=== PATIENT | female | born 1945 | race Caucasian/White ===

== ENCOUNTER 2016-11-11 16:42 | Inpatient (IN) | payer MEDICARE, MEDICAID ==
--- NOTE | 2016-11-11 17:07 | ER Document Report ---
ED General - General Chief Complaint: General Weakness Stated Complaint: WEAKNESS Time seen by provider: 17:00 Notes: This is a 71-year-old female with history of hypertension, diabetes, CVA with residual right sided weakness who presents complaining of generalized weakness. She states that she's been having problems for several months of legs giving out and also episodic bowel incontinence. She states that she fell today because she was just weak. She states her legs get weak and she just eases herself downto the ground. She has difficulty getting herself back up. She was on floor in bathroom for about 20 minutes today. There's been no syncope or loss of consciousness. She has not struck her head. She denies any headache. She does complain of fever and some flulike symptoms. She states multiple family members at been ill with similar symptoms. She complains of cough productive of scanty clear sputum. She's had a dry scratchy throat. She's had nausea with vomiting and some loose stools. She denies any abdominal pain. She is on aspirin and Plavix for storke prevention. Past Medical History - Social History Smoking Status: Current Every Day Smoker Frequency of alcohol use: None Drug Abuse: None Lives with: Family Family History: Reviewed & Not Pertinent Review of Systems - Review of Systems Constitutional: Chills, Fever, Malaise, Weakness EENT: Throat pain Cardiovascular: denies: Chest pain Respiratory: Cough, Short of breath Gastrointestinal: Diarrhea, Nausea, Vomiting. denies: Abdominal pain Genitourinary: denies: Burning, Dysuria, Flank pain Musculoskeletal: Leg swelling Neurological/Psychological: denies: Numbness, Tingling Physical Exam - Vital signs Vitals: Temp Pulse Resp BP Pulse Ox 99.9 F 79 20 176/79 H 96 11/11/16 16:51 11/11/16 16:51 11/11/16 16:51 11/11/16 16:51 11/11/16 16:51 - General General appearance: Alert In distress: None - Elderly, debilitated appearing female in no acute respiratory distress - HEENT Head: Normocephalic Pupils: PERRL Mucous membranes: Normal Pharynx: Normal Neck: Normal - Respiratory Respiratory status: No respiratory distress Breath sounds: Normal - Cardiovascular Rhythm: Regular - Abdominal Inspection: Obese Bowel sounds: Normal Tenderness: Nontender - Back Back: Normal - Extremities General upper extremity: Normal inspection General lower extremity: Edema - Neurological Orientation: AAOx4 - Psychological Associated symptoms: Normal affect - Skin Skin Temperature: Warm Skin Moisture: Dry Skin Color: Normal Course - Re-evaluation Re-evalutation: 11/11/16 18:40 pt oxygen saturation drops to 88% when nasal cannula removed. Pt placed back on 2L O2 - Vital Signs Vital signs: Temp Pulse Resp BP Pulse Ox 99.9 F 79 20 176/79 H 96 11/11/16 16:51 11/11/16 16:51 11/11/16 16:51 11/11/16 16:51 11/11/16 16:51 - Laboratory Result Diagrams: 11/11/16 17:10 11/11/16 17:10 Laboratory results interpreted by me: 11/11/16 11/11/16 11/11/16 17:10 17:10 17:50 Seg Neuts % (Manual) 90 H Band Neutrophils % 2 L Lymphocytes % (Manual) 3 L Abs Neuts (Manual) 8.3 H Sodium 129.9 L Potassium 3.2 L Chloride 85 L Glucose 182 H AST 47 H Urine Protein 30 H Urine Blood MODERATE H Ur Leukocyte Esterase TRACE H - Diagnostic Test Radiology reviewed: Image reviewed, Reports reviewed - left lower lobe pneumonia Discharge - Discharge Clinical Impression: Hypokalemia, Hyponatremia Pneumonia Qualifiers: Pneumonia type: due to unspecified organism Laterality: left Lung location: lower lobe of lung Qualified Code(s): J18.1 - Lobar pneumonia, unspecified organism Condition: Good Disposition: ADMITTED INPATIENT [facility] Admitted: Telemetry
[2016-11-11 17:29] LABS: HEMATOCRIT 37.9 % (36.0-47.0); HEMOGLOBIN 12.8 g/dL (12.0-15.5); HGB HCT DIFFERENCE 0.5; MEAN CORPUSCULAR HEMOGLOBIN 28.9 pg (27.0-33.4); MEAN CORPUSCULAR HGB CONC 33.7 g/dL (32.0-36.0); MEAN CORPUSCULAR VOLUME 86 fl (80-97); RED BLOOD COUNT 4.43 10^6/uL (3.72-5.28)
[2016-11-11 17:39] LABS: PROTHROMBIN TIME 12.6 SEC (11.4-15.4)
[2016-11-11 17:40] LABS: PARTIAL THROMBOPLASTIN TIME 32.8 SEC (23.5-35.8)
[2016-11-11 17:48] LABS: ALANINE AMINOTRANSFERASE 30 U/L (9-52); ALBUMIN 3.8 g/dL (3.5-5.0); ALKALINE PHOSPHATASE 54 U/L (38-126); ANION GAP 15 (5-19); ASPARTATE AMINO TRANSFERASE 47 U/L (14-36); BILIRUBIN,TOTAL 0.4 mg/dL (0.2-1.3); BLOOD UREA NITROGEN 14 mg/dL (7-20); CALCIUM 9.1 mg/dL (8.4-10.2); CARBON DIOXIDE 30 mmol/L (22-30); CHLORIDE 85 mmol/L (98-107); CREATININE RESULT 0.86 mg/dL (0.52-1.25); GLUCOSE 182 mg/dL (75-110); POTASSIUM 3.2 mmol/L (3.6-5.0); SODIUM 129.9 mmol/L (137-145); TOTAL PROTEIN 6.3 g/dL (6.3-8.2)
[2016-11-11] MEDS ORDERED: NORMAL SALINE 1000 ML 1,000 ML IV ONE (17:57)
[2016-11-11 17:58] LABS: BAND NEUTROPHILS % (MANUAL) 2 % (3-5); BASOPHILS % (MANUAL) 0 % (0-2); EOSINOPHILS % (MANUAL) 0 % (0-6); LYMPHOCYTES % (MANUAL) 3 % (13-45); TOTAL CELLS COUNTED 100
[2016-11-11 17:59] LABS: TOXIC GRANULATION SLIGHT
[2016-11-11 18:00] LABS: BURR CELLS SLIGHT; OVALOCYTES SLIGHT; ROULEAUX SLIGHT
[2016-11-11] MEDS ORDERED: POTASSI CL 20 MEQ/50 ML RIDER 50 ML IV SCH (18:00)
[2016-11-11] MEDS ORDERED: ACETAMINOPHEN 325 MG TABLET PO ONE (18:13)
[2016-11-11] MEDS ORDERED: AZITHROMYCIN INJ 500 MG VIAL IV ONE (18:28)
[2016-11-11] MEDS ORDERED: CEFTRIAXONE 1 GM/D5W RTU 50 ML IV ONE (18:28)
[2016-11-11 18:35] LABS: APPEARANCE,URINE CLOUDY; BILIRUBIN,URINE NEGATIVE (NEGATIVE); GLUCOSE, URINE NEGATIVE (NEGATIVE); KETONES,URINE NEGATIVE (NEGATIVE); LEUKOCYTE ESTERASE,URINE TRACE (NEGATIVE); NITRITE,URINE NEGATIVE (NEGATIVE); PROTEIN,URINE 30 mg/dL (NEGATIVE); URINE SPECIFIC GRAVITY 1.015; UROBILINOGEN,URINE NEGATIVE mg/dL (<2.0)
[2016-11-11] MEDS ORDERED: LEVOFLOXACIN 750 MG/D5W RTU 750 MG/150 ML RTUPB IV ONE (20:00)
[2016-11-11 20:17] LABS: CREATINE KINASE MB 0.87 ng/mL (<4.55)
[2016-11-11 20:24] LABS: TROPONIN I 0.538 ng/mL
[2016-11-11] MEDS ORDERED: ATORVASTATIN CALCIUM 80 MG TABLET PO ONE (20:31)
[2016-11-11] MEDS ORDERED: ASPIRIN 325 MG TABLET PO ONE (20:31)
[2016-11-11] MEDS: IPRATROPIUM/ALBUTEROL 0.5-2.5 MG/3 ML AMPUL NEB SCH (20:32)
[2016-11-11] MEDS ORDERED: DEXTROSE 40% GEL 15 GM TUBE PO PRN ×2 (20:34)
[2016-11-11] MEDS ORDERED: DEXTROSE 50%-WATER 25 GM/50 ML DISP.SYRIN IV PRN ×2 (20:34)
[2016-11-11] MEDS ORDERED: GLUCAGON,HUMAN RECOMB 1 MG INJ IM PRN (20:34)
--- NOTE | 2016-11-11 20:54 | EKG REPORT ---
SEVERITY:- ABNORMAL ECG - SINUS TACHYCARDIA SINUS PAUSE/ARREST WITH ATRIAL ESCAPE ABNRM R PROG, CONSIDER ASMI OR LEAD PLACEMENT : Confirmed by: Brendon Burr MD 11-Nov-2016 20:53:45
--- NOTE | 2016-11-11 20:54 | EKG REPORT ---
SEVERITY:- ABNORMAL ECG - SINUS RHYTHM SUPRAVENTRICULAR BIGEMINY BORDERLINE LEFT AXIS DEVIATION : Confirmed by: Brendon Burr MD 11-Nov-2016 20:53:58
[2016-11-11] MEDS ORDERED: CLOPIDOGREL BISULFATE 75 MG TABLET PO ONE (21:00)
[2016-11-11] MEDS: MAGNESIUM SULFATE/D5W 100 ML IV SCH (21:30)
[2016-11-11] MEDS: HEPARIN SOD (PORCINE) 5,000 UNIT/ML 1 ML SYRINGE SUBCUT SCH (22:00)
[2016-11-11] MEDS: GUAIFENESIN 600 MG TABLET.SA PO SCH (22:00)
[2016-11-11] MEDS: AMLODIPINE BESYLATE 5 MG TABLET PO SCH (22:00)
[2016-11-12] MEDS: MAGNESIUM SULFATE/D5W 1 GM/100 ML RTUPB IV SCH ×2 (00:42→02:32)
[2016-11-12] MEDS ORDERED: POTASSI CL 20 MEQ/50 ML RIDER 20 MEQ/50 ML RTUPB IV SCH (00:45)
[2016-11-12] MEDS: IPRATROPIUM/ALBUTEROL 0.5-2.5 MG/3 ML AMPUL NEB SCH ×4 (01:54→20:58)
[2016-11-12] MEDS: MAGNESIUM SULFATE/D5W 100 ML IV SCH (02:33)
[2016-11-12 02:39] LABS: ABSOLUTE MONOCYTES (AUTO) 0.6 10^3/uL (0.1-1.4); ABSOLUTE NEUT (AUTO) 4.2 10^3/uL (1.7-8.2); BASOPHILS % (AUTO) 0.3 % (0-2); HEMATOCRIT 34.7 % (36.0-47.0); HEMOGLOBIN 12.3 g/dL (12.0-15.5); HGB HCT DIFFERENCE 2.2; LYMPHOCYTES % (AUTO) 16.4 % (13-45); MEAN CORPUSCULAR HEMOGLOBIN 29.3 pg (27.0-33.4); MEAN CORPUSCULAR HGB CONC 35.3 g/dL (32.0-36.0); MEAN CORPUSCULAR VOLUME 83 fl (80-97); MONOCYTES % (AUTO) 10.7 % (3-13); RED BLOOD COUNT 4.19 10^6/uL (3.72-5.28); RED CELL DISTRIBUTION WIDTH 12.9 % (11.5-14.0); SEGMENTED NEUTROPHILS % (AUTO) 72.6 % (42-78); WHITE BLOOD COUNT 5.8 10^3/uL (4.0-10.5)
[2016-11-12 03:02] LABS: ANION GAP 11 (5-19); BLOOD UREA NITROGEN 10 mg/dL (7-20); CALCIUM 8.7 mg/dL (8.4-10.2); CARBON DIOXIDE 32 mmol/L (22-30); CHLORIDE 89 mmol/L (98-107); CREATINE KINASE 1175 U/L (30-135); CREATININE RESULT 0.71 mg/dL (0.52-1.25); GLUCOSE 136 mg/dL (75-110); SODIUM 131.6 mmol/L (137-145)
[2016-11-12 03:12] LABS: CREATINE KINASE MB 2.27 ng/mL (<4.55)
[2016-11-12 03:16] LABS: TROPONIN I 0.419 ng/mL
[2016-11-12] MEDS: POTASSI CL 20 MEQ/50 ML RIDER 50 ML IV SCH ×2 (03:33→06:03)
[2016-11-12] MEDS ORDERED: ENALAPRILAT DIHYDRATE INJ/PF 1.25 MG/1 ML SDV IV ONE (04:45)
[2016-11-12] MEDS: HEPARIN SOD (PORCINE) 5,000 UNIT/ML 1 ML SYRINGE SUBCUT SCH ×3 (06:03→21:54)
[2016-11-12] MEDS ORDERED: POTASSIUM CHLORIDE 10 MEQ TABLET.SA PO ONE (06:03)
--- NOTE | 2016-11-12 06:11 | PDOC H&P ---
History of Present Illness Admission Date/PCP: 11/11/16 19:28 KP CARSON Patient complains of: Shortness of breath cough and fever History of Present Illness: THA VERNON is a 71 year old female with a past medical history of hypertension diabetes dyslipidemia and COPD who'd been her usual state of health until approximately 3 days ago noting a productive cough with yellow sputum developing fever prompting to seek evaluation emergency room where she's found to have an x-ray suggesting pneumonia and pulmonary vascular congestion she started on empiric antibiotics and referred to the hospitalist for admission. Patient denies recent change in medications or infectious contacts. No chest pain nausea vomiting diaphoresis. Past Medical History Cardiac Medical History: Reports: Hypertension Pulmonary Medical History: Reports: Chronic Obstructive Pulmonary Disease (COPD) Endocrine Medical History: Reports: Diabetes Mellitus Type 2 Psychiatric Medical History: Reports: Depression Past Surgical History Past Surgical History: Reports: Hysterectomy Social History Lives with: Family Smoking Status: Current Some Day Smoker Cigarettes Packs Per Day: 1 Frequency of Alcohol Use: None Hx Recreational Drug Use: No Drugs: None Hx Prescription Drug Abuse: No - Advance Directive Resuscitation Status: Full Code Family History Family History: CAD, COPD Parental Family History Reviewed: Yes Children Family History Reviewed: Yes Sibling(s) Family History Reviewed.: Yes Medication/Allergy Home Medications: Acetaminophen with Codeine [Tylenol #3 Tablet] 1 tab PO Q6HP PRN 11/11/16 Amlodipine Besylate [Amlodipine Besylate] 5 mg PO BID 11/11/16 Aspirin [Aspirin EC] 81 mg PO DAILY 11/11/16 Clopidogrel Bisulfate [Clopidogrel] 75 mg PO DAILY 11/11/16 Cyclobenzaprine HCl [Flexeril 10 mg Tablet] 10 mg PO TIDP PRN 11/11/16 Fluticasone/Salmeterol [Advair HFA 230-21 mcg Inhaler] 2 puff IH DAILY 11/11/16 Furosemide [Lasix 40 mg Tablet] 40 mg PO DAILY 11/11/16 Lisinopril/Hydrochlorothiazide [Lisinopril-Hctz 20-12.5 mg Tab] 1 tab PO Q12 Metoprolol Succinate [Toprol XL 100 mg Tablet] 100 mg PO DAILY 11/11/16 Nitroglycerin [Nitrostat] 0.3 mg SL PRN PRN 11/11/16 Omeprazole [Omeprazole] 20 mg PO DAILY 11/11/16 Oxaprozin [Daypro] 1,200 mg PO DAILY 11/11/16 Oxybutynin Chloride [Ditropan 5 mg Tablet] 5 mg PO Q12 11/11/16 Simvastatin [Simvastatin] 20 mg PO QHS 11/11/16 Sitagliptin Phos/Metformin HCl [Janumet 50-1,000 mg Tablet] 1 tab PO BID Tramadol HCl/Acetaminophen [Tramadol-Acetaminophn 37.5-325] 2 tab PO Q8 Allergies/Adverse Reactions: No Known Allergies Allergy (Verified 11/12/16 00:31) Review of Systems Constitutional: ABSENT: chills, fever(s), headache(s), weight gain, weight loss Eyes: ABSENT: visual disturbances Ears: ABSENT: hearing changes Cardiovascular: ABSENT: chest pain, dyspnea on exertion, edema, orthropnea, palpitations Respiratory: ABSENT: cough, hemoptysis Gastrointestinal: ABSENT: abdominal pain, constipation, diarrhea, hematemesis, hematochezia, nausea, vomiting Genitourinary: ABSENT: dysuria, hematuria Musculoskeletal: ABSENT: joint swelling Integumentary: ABSENT: rash, wounds Neurological: ABSENT: abnormal gait, abnormal speech, confusion, dizziness, focal weakness, syncope Psychiatric: ABSENT: anxiety, depression, homidical ideation, suicidal ideation Endocrine: ABSENT: cold intolerance, heat intolerance, polydipsia, polyuria Hematologic/Lymphatic: ABSENT: easy bleeding, easy bruising Physical Exam Vital Signs: Temp Pulse Resp BP Pulse Ox 98.2 F 77 14 182/65 H 96 11/12/16 03:20 11/12/16 03:20 11/12/16 03:20 11/12/16 03:20 11/12/16 03:20 Intake & Output 11/10/16 11/11/16 11/12/16 11:59 11:59 11:59 Weight 89.1 kg General appearance: PRESENT: cooperative, mild distress Head exam: PRESENT: atraumatic, normocephalic Eye exam: PRESENT: conjunctiva pink, EOMI, PERRLA. ABSENT: scleral icterus Ear exam: PRESENT: normal external ear exam Mouth exam: PRESENT: moist, tongue midline Neck exam: ABSENT: carotid bruit, JVD, lymphadenopathy, thyromegaly Respiratory exam: PRESENT: accessory muscle use, crackles, prolonged expiratory phas, rales, rhonchi, symmetrical, tachypnea Cardiovascular exam: PRESENT: irregular rhythm, +S1, +S2. ABSENT: diastolic murmur, gallop, rubs Pulses: PRESENT: normal dorsalis pedis pul Vascular exam: PRESENT: normal capillary refill GI/Abdominal exam: PRESENT: normal bowel sounds, soft. ABSENT: distended, guarding, mass, organolmegaly, rebound, tenderness Rectal exam: PRESENT: deferred Extremities exam: PRESENT: full ROM. ABSENT: calf tenderness, clubbing, pedal edema Neurological exam: PRESENT: alert, awake, oriented to person, oriented to place , oriented to time, oriented to situation, CN II-XII grossly intact. ABSENT: motor sensory deficit Psychiatric exam: PRESENT: appropriate affect, normal mood. ABSENT: homicidal ideation, suicidal ideation Skin exam: PRESENT: dry, intact, warm. ABSENT: cyanosis, rash Results Laboratory Results: 11/12/16 02:15 11/12/16 02:15 11/12/16 11/12/16 11/12/16 02:15 02:15 02:15 WBC 5.8 RBC 4.19 Hgb 12.3 Hct 34.7 L MCV 83 MCH 29.3 MCHC 35.3 RDW 12.9 Plt Count 154 Seg Neutrophils % 72.6 Lymphocytes % 16.4 Monocytes % 10.7 Eosinophils % 0.0 Basophils % 0.3 Absolute Neutrophils 4.2 Absolute Lymphocytes 1.0 Absolute Monocytes 0.6 Absolute Eosinophils 0.0 Absolute Basophils 0.0 Sodium 131.6 L Potassium 3.0 L* Chloride 89 L Carbon Dioxide 32 H Anion Gap 11 BUN 10 Creatinine 0.71 Est GFR ( Amer) > 60 Est GFR (Non-Af Amer) > 60 Glucose 136 H Calcium 8.7 Lipase 26.8 11/12/16 11/12/16 02:15 02:15 Creatine Kinase 1175 H CK-MB (CK-2) 2.27 Troponin I 0.419 Impressions: Chest X-Ray 11/11/16 16:50 IMPRESSION: 1. Possible left basilar pneumonia. 2. Mild vascular congestion Head CT 11/11/16 17:07 IMPRESSION: No significant abnormalities on brain CT. Assessment & Plan - Diagnosis (1) Pneumonia Qualifiers: Pneumonia type: due to unspecified organism Laterality: left Lung location: lower lobe of lung Qualified Code(s): J18.1 - Lobar pneumonia, unspecified organism Is this a current diagnosis for this admission?: YesPlan: Admission to monitored bed pneumonia care set empiric antibiotics albuterol Atrovent incentive spirometry following blood and sputum culture with follow-up CBC and chemistry (2) Hypomagnesemia Is this a current diagnosis for this admission?: YesPlan: Replace and recheck (3) Hypokalemia Is this a current diagnosis for this admission?: YesPlan: Replace and recheck chemistry (4) Hyponatremia Is this a current diagnosis for this admission?: YesPlan: Likely secondary to hydrochlorothiazide will hold IV fluid challenge and reevaluation - Time Time Spent: 50 to 70 Minutes
[2016-11-12] MEDS: LEVOFLOXACIN 750 MG/D5W RTU 750 MG/150 ML RTUPB IV SCH (09:00)
[2016-11-12] MEDS: ASPIRIN 81 MG TABLET, ENT COATED PO SCH (09:00)
[2016-11-12] MEDS: GUAIFENESIN 600 MG TABLET.SA PO SCH ×2 (09:01→21:53)
[2016-11-12] MEDS: CLOPIDOGREL BISULFATE 75 MG TABLET PO SCH (09:01)
[2016-11-12] MEDS: AMLODIPINE BESYLATE 5 MG TABLET PO SCH ×2 (09:01→21:53)
[2016-11-12] MEDS ORDERED: DILTIAZEM HCL 30 MG TABLET PO ONE (09:45)
[2016-11-12] MEDS ORDERED: METOPROLOL SUCCINATE 50 MG TAB.SR.24H PO SCH (10:00)
[2016-11-12 11:12] LABS: CREATINE KINASE MB 2.18 ng/mL (<4.55); TROPONIN I 0.301 ng/mL
--- NOTE | 2016-11-12 11:33 | PDOC PROGRESS REPORT ---
Subjective Progress Note for:: 11/12/16 Subjective:: Complains of a cough. Physical Exam Vital Signs: Temp Pulse Resp BP Pulse Ox 98.7 F 114 H 20 162/83 H 95 11/12/16 08:10 11/12/16 08:10 11/12/16 08:10 11/12/16 08:10 11/12/16 08:10 Intake & Output 11/11/16 11/12/16 11/13/16 06:59 06:59 06:59 Intake Total 1628 Balance 1628 Weight 89.1 kg General appearance: PRESENT: no acute distress Eye exam: PRESENT: conjunctiva pink. ABSENT: scleral icterus Mouth exam: PRESENT: moist, tongue midline Neck exam: ABSENT: JVD Respiratory exam: PRESENT: rhonchi - Bilateral rhonchi. Cardiovascular exam: PRESENT: RRR, systolic murmur - 2/6 systolic murmur.. ABSENT: diastolic murmur, rubs Extremities exam: ABSENT: calf tenderness, clubbing, pedal edema Neurological exam: PRESENT: alert, awake, oriented to person, oriented to place , oriented to time, oriented to situation, other - Mild slurring of speech. Psychiatric exam: PRESENT: appropriate affect Skin exam: PRESENT: dry, intact, warm. ABSENT: cyanosis, rash Results Laboratory Results: 11/12/16 02:15 11/12/16 02:15 11/12/16 11/12/16 11/12/16 02:15 02:15 02:15 WBC 5.8 RBC 4.19 Hgb 12.3 Hct 34.7 L MCV 83 MCH 29.3 MCHC 35.3 RDW 12.9 Plt Count 154 Seg Neutrophils % 72.6 Lymphocytes % 16.4 Monocytes % 10.7 Eosinophils % 0.0 Basophils % 0.3 Absolute Neutrophils 4.2 Absolute Lymphocytes 1.0 Absolute Monocytes 0.6 Absolute Eosinophils 0.0 Absolute Basophils 0.0 Sodium 131.6 L Potassium 3.0 L* Chloride 89 L Carbon Dioxide 32 H Anion Gap 11 BUN 10 Creatinine 0.71 Est GFR ( Amer) > 60 Est GFR (Non-Af Amer) > 60 Glucose 136 H Calcium 8.7 Magnesium Lipase 26.8 11/12/16 02:15 WBC RBC Hgb Hct MCV MCH MCHC RDW Plt Count Seg Neutrophils % Lymphocytes % Monocytes % Eosinophils % Basophils % Absolute Neutrophils Absolute Lymphocytes Absolute Monocytes Absolute Eosinophils Absolute Basophils Sodium Potassium Chloride Carbon Dioxide Anion Gap BUN Creatinine Est GFR ( Amer) Est GFR (Non-Af Amer) Glucose Calcium Magnesium 1.7 Lipase 11/12/16 11/12/16 11/12/16 02:15 02:15 10:20 Creatine Kinase 1175 H 1310 H CK-MB (CK-2) 2.27 Troponin I 0.419 11/12/16 10:20 Creatine Kinase CK-MB (CK-2) 2.18 Troponin I 0.301 Impressions: Chest X-Ray 11/11/16 16:50 IMPRESSION: 1. Possible left basilar pneumonia. 2. Mild vascular congestion Head CT 11/11/16 17:07 IMPRESSION: No significant abnormalities on brain CT. Assessment & Plan - Diagnosis (1) Pneumonia Qualifiers: Pneumonia type: due to unspecified organism Laterality: left Lung location: lower lobe of lung Qualified Code(s): J18.1 - Lobar pneumonia, unspecified organism Is this a current diagnosis for this admission?: YesPlan: Patient has a left basilar pneumonia. We'll continue with the Levaquin. (2) CVA (cerebral vascular accident) Is this a current diagnosis for this admission?: YesPlan: Patient had slurred speech reports she still having some difficulty with word finding. Head CT was normal but will check an MRI to see if she has had an acute CVA. We'll continue with aspirin. (3) Hypokalemia Is this a current diagnosis for this admission?: YesPlan: Patient has been given IV replacement. (4) Atrial fibrillation Is this a current diagnosis for this admission?: YesPlan: Patient will be started on by mouth diltiazem. Her heart rate has been running around 90 to 110. (5) Hypomagnesemia Is this a current diagnosis for this admission?: YesPlan: Resolved. (6) Hyponatremia Is this a current diagnosis for this admission?: YesPlan: Should improve with IV fluids. - Time Time Spent with patient: 25-34 minutes - Inpatient Certification Medical Necessity: Need for IV Antibiotics
[2016-11-12] MEDS ORDERED: DILTIAZEM HCL 30 MG TABLET PO SCH (12:00)
[2016-11-12] MEDS ORDERED: DILTIAZEM HCL/D5W 125 ML IV PRN (13:09)
[2016-11-12] MEDS: NORMAL SALINE 1000 ML 1,000 ML IV PRN (14:30)
[2016-11-12] MEDS: HYDRALAZINE HCL INJ/PF 20 MG/1 ML SDV IV PRN ×2 (16:00→21:54)
--- NOTE | 2016-11-12 16:38 | EKG REPORT ---
SEVERITY:- BORDERLINE ECG - SINUS RHYTHM WITH FREQ PACS. LEFT AXIS DEVIATION MINIMAL ST DEPRESSION, ANTEROLATERAL LEADS : Confirmed by: Brendon Burr MD 12-Nov-2016 16:37:26
[2016-11-13] MEDS: IPRATROPIUM/ALBUTEROL 0.5-2.5 MG/3 ML AMPUL NEB SCH ×4 (02:09→20:43)
[2016-11-13] MEDS ORDERED: DILTIAZEM HCL/D5W 125 MG/125 ML RTUINJ IV ONE (02:13)
[2016-11-13] MEDS: DILTIAZEM HCL/D5W 125 MG/125 ML RTUINJ IV PRN ×3 (02:30→21:46)
[2016-11-13] MEDS: NORMAL SALINE 1000 ML 1,000 ML IV PRN ×2 (05:31→21:47)
[2016-11-13] MEDS: HEPARIN SOD (PORCINE) 5,000 UNIT/ML 1 ML SYRINGE SUBCUT SCH ×3 (05:32→21:14)
[2016-11-13 05:46] LABS: ABSOLUTE MONOCYTES (AUTO) 0.5 10^3/uL (0.1-1.4); ABSOLUTE NEUT (AUTO) 3.1 10^3/uL (1.7-8.2); BASOPHILS % (AUTO) 0.3 % (0-2); HEMATOCRIT 35.9 % (36.0-47.0); HEMOGLOBIN 12.4 g/dL (12.0-15.5); HGB HCT DIFFERENCE 1.3; LYMPHOCYTES % (AUTO) 21.7 % (13-45); MEAN CORPUSCULAR HEMOGLOBIN 29.2 pg (27.0-33.4); MEAN CORPUSCULAR HGB CONC 34.6 g/dL (32.0-36.0); MEAN CORPUSCULAR VOLUME 84 fl (80-97); MONOCYTES % (AUTO) 11.3 % (3-13); RED BLOOD COUNT 4.26 10^6/uL (3.72-5.28); RED CELL DISTRIBUTION WIDTH 13.2 % (11.5-14.0); SEGMENTED NEUTROPHILS % (AUTO) 66.7 % (42-78); WHITE BLOOD COUNT 4.6 10^3/uL (4.0-10.5)
[2016-11-13 06:13] LABS: ANION GAP 9 (5-19); BLOOD UREA NITROGEN 5 mg/dL (7-20); CALCIUM 8.8 mg/dL (8.4-10.2); CARBON DIOXIDE 32 mmol/L (22-30); CHLORIDE 92 mmol/L (98-107); CREATININE RESULT 0.59 mg/dL (0.52-1.25); GLUCOSE 139 mg/dL (75-110); POTASSIUM 3.4 mmol/L (3.6-5.0); SODIUM 132.8 mmol/L (137-145)
[2016-11-13] MEDS: HYDRALAZINE HCL INJ/PF 20 MG/1 ML SDV IV PRN ×3 (06:15→21:13)
--- NOTE | 2016-11-13 10:02 | EKG REPORT ---
SEVERITY:- ABNORMAL ECG - SINUS TACHYCARDIA ATRIAL PREMATURE COMPLEX LEFT AXIS DEVIATION REPOL ABNRM SUGGESTS ISCHEMIA, DIFFUSE LEADS : Confirmed by: Brendon Burr MD 13-Nov-2016 10:01:26
--- NOTE | 2016-11-13 10:02 | EKG REPORT ---
SEVERITY:- BORDERLINE ECG - SINUS TACHYCARDIA WITH IRREGULAR RATE 94-130 LEFT AXIS DEVIATION : Confirmed by: Brendon Burr MD 13-Nov-2016 10:01:52
[2016-11-13] MEDS: LEVOFLOXACIN 750 MG/D5W RTU 750 MG/150 ML RTUPB IV SCH (10:29)
[2016-11-13] MEDS: CLOPIDOGREL BISULFATE 75 MG TABLET PO SCH (10:32)
[2016-11-13] MEDS: ASPIRIN 81 MG TABLET, ENT COATED PO SCH (10:32)
[2016-11-13] MEDS: AMLODIPINE BESYLATE 5 MG TABLET PO SCH ×2 (10:33→21:14)
[2016-11-13] MEDS: GUAIFENESIN 600 MG TABLET.SA PO SCH ×2 (10:37→21:14)
[2016-11-13] MEDS: INSULIN LISPRO 100 UNIT/ML 3 ML VIAL SUBCUT PRN ×3 (11:34→23:10)
--- NOTE | 2016-11-13 12:03 | PDOC PROGRESS REPORT ---
Subjective Progress Note for:: 11/13/16 Subjective:: Complains of shortness of breath. Physical Exam Vital Signs: Temp Pulse Resp BP Pulse Ox 98.2 F 117 H 18 162/46 H 95 11/13/16 05:41 11/13/16 11:50 11/13/16 08:59 11/13/16 11:50 11/13/16 08:59 Intake & Output 11/12/16 11/13/16 11/14/16 06:59 06:59 06:59 Intake Total 1628 3115 Output Total 1650 Balance 1628 1465 Weight 89.1 kg 89 kg General appearance: PRESENT: no acute distress Eye exam: PRESENT: conjunctiva pink. ABSENT: scleral icterus Mouth exam: PRESENT: moist, tongue midline Neck exam: ABSENT: JVD Respiratory exam: PRESENT: rhonchi - Coarse rhonchi bilaterally Cardiovascular exam: PRESENT: RRR, systolic murmur - 2/6 systolic murmur.. ABSENT: diastolic murmur, rubs GI/Abdominal exam: PRESENT: normal bowel sounds, soft. ABSENT: distended, guarding, mass, organolmegaly, rebound, tenderness Extremities exam: ABSENT: calf tenderness, clubbing, pedal edema Neurological exam: PRESENT: alert, awake, oriented to person, oriented to place , oriented to time, oriented to situation Psychiatric exam: PRESENT: appropriate affect Skin exam: PRESENT: dry, intact, warm. ABSENT: cyanosis, rash Results Laboratory Results: 11/13/16 05:24 11/13/16 05:24 11/13/16 11/13/16 05:24 05:24 WBC 4.6 RBC 4.26 Hgb 12.4 Hct 35.9 L MCV 84 MCH 29.2 MCHC 34.6 RDW 13.2 Plt Count 149 L Seg Neutrophils % 66.7 Lymphocytes % 21.7 Monocytes % 11.3 Eosinophils % 0.0 Basophils % 0.3 Absolute Neutrophils 3.1 Absolute Lymphocytes 1.0 Absolute Monocytes 0.5 Absolute Eosinophils 0.0 Absolute Basophils 0.0 Sodium 132.8 L Potassium 3.4 L Chloride 92 L Carbon Dioxide 32 H Anion Gap 9 BUN 5 L Creatinine 0.59 Est GFR ( Amer) > 60 Est GFR (Non-Af Amer) > 60 Glucose 139 H Calcium 8.8 11/12/16 11/12/16 11/12/16 02:15 02:15 10:20 Creatine Kinase 1175 H 1310 H CK-MB (CK-2) 2.27 Troponin I 0.419 11/12/16 10:20 Creatine Kinase CK-MB (CK-2) 2.18 Troponin I 0.301 Impressions: Chest X-Ray 11/11/16 16:50 IMPRESSION: 1. Possible left basilar pneumonia. 2. Mild vascular congestion Head CT 11/11/16 17:07 IMPRESSION: No significant abnormalities on brain CT. Head MRI 11/12/16 08:23 IMPRESSION: MINIMAL MICROVASCULAR ISCHEMIC CHANGE. OTHERWISE NORMAL STUDY. Assessment & Plan - Diagnosis (1) Pneumonia Qualifiers: Pneumonia type: due to unspecified organism Laterality: left Lung location: lower lobe of lung Qualified Code(s): J18.1 - Lobar pneumonia, unspecified organism Is this a current diagnosis for this admission?: YesPlan: Patient has a left basilar pneumonia. We'll continue with the Levaquin. (2) CVA (cerebral vascular accident) Is this a current diagnosis for this admission?: YesPlan: Patient had slurred speech reports she still having some difficulty with word finding. Head CT was normal and brain MRI showed no acute event. This may represent a TIA and not actually a CVA. (3) Hypokalemia Is this a current diagnosis for this admission?: YesPlan: We will give by mouth replacement. (4) Atrial fibrillation Is this a current diagnosis for this admission?: YesPlan: Patient was seen by cardiology who thinks this is not atrial fibrillation. Patient is on diltiazem. (5) Hypomagnesemia Is this a current diagnosis for this admission?: YesPlan: Resolved. (6) Hyponatremia Is this a current diagnosis for this admission?: YesPlan: Improving with IV fluids. - Time Time Spent with patient: 25-34 minutes - Inpatient Certification Medical Necessity: Need For IV Fluids, Need for IV Antibiotics
--- NOTE | 2016-11-13 14:48 | PROGRESS NOTE E ---
Progress Note NAME: THA VERNON : 1945 AGE: 71Y DATE: 11/13/2016 ROOM: 331 SUBJECTIVE: The patient states her shortness of breath is slightly improved. She still has orthopnea. There is no chest pain or discomfort. There is no palpitation. There is no nausea or vomiting. There is no PND. There is no leg edema. The patient states she is still coughing but is unable to bring up sputum. There are no TIA or CVA symptoms. There is no ventricular arrhythmia of significance seen on the monitor. OBJECTIVE: GENERAL: On examination, the patient is mildly obese, in no acute distress. VITAL SIGNS: Temperature is 98.2 degrees Fahrenheit. Pulse is 101 beats per minute. Blood pressure is 156/58. Respirations are 22 per minute. O2 saturations are 96% on 2 liters. HEAD: Atraumatic/normocephalic. EYES: Pupils are equal, round, regular, reactive to light and accommodation. Extraocular movements are normal. There is no conjunctival pallor. There is no scleral icterus. EARS, NOSE, AND THROAT: Negative. NECK: Supple. There is no JVD. Carotids are equal. There is no bruit. There is no lymphadenopathy. Trachea is central. CHEST: There are no accessory muscles of respirations in use. There are scattered rhonchi bilaterally, and there are dry crackles on the left base. There is diminished air entry and prolonged expiration on auscultation also. On percussion, there is hyperresonance. HEART: S1, S2 is heard. There is no S3 gallop. There is no S4 gallop. S1 is of normal intensity. There is a systolic murmur of mitral regurgitation present. There is no rub. ABDOMEN: Soft, nontender. There is no hepatosplenomegaly. Bowel sounds are well heard. EXTREMITIES: Femorals are diminished. There is no femoral bruit. Leg pulses are diminished. There is no pedal edema. There is no DVT or cellulitis. There is no cyanosis or clubbing. CENTRAL NERVOUS SYSTEM: The patient is conscious, awake, alert, oriented x3 with no focal deficit. PSYCHIATRIC: The patient does not appear to be agitated. Her judgement and insight are intact. Her affect is normal. FLUID BALANCE: The patient's 24-hour intake is 3115 mL, output is 1650 mL. DIAGNOSTIC DATA: The patient's EKG shows chaotic atrial rhythm with 3 different P-wave morphologies and also diffuse ST-segment depression suggestive of ischemia. The patient's sodium is 132.8, potassium is 3.4, chloride 92, CO2 is 32, the patient's BUN is 5, creatinine 0.59, GFR is greater than 60, her glucose is 139, and her hemoglobin A1c is 8.8. The patient's white count is 4,600, hemoglobin is 12.4, hematocrit is 35.9, and her platelet count is 149,000. IMPRESSION: 1. LEFT LOWER LOBE PNEUMONIA. 2. COPD ACUTE EXACERBATION. 3. CHAOTIC ATRIAL RHYTHM/MULTIFOCAL ATRIAL TACHYCARDIA; NO EVIDENCE OF ATRIAL FIBRILLATION. THE PATIENT IS ON IV CARDIZEM. CONTINUE THIS. THIS IS BEING INCREASED TO 10 MG PER HOUR. CONTINUE IV FLUIDS. 4. HYPERTENSION AND BLOOD PRESSURE IS STILL NOT WELL CONTROLLED. WOULD RECOMMEND WOULD START THE PATIENT ON LISINOPRIL WHEN THE PATIENT IS OFF THE IV CARDIZEM DRIP, WOULD PLACE THE PATIENT ON CARDIZEM CD AND STOP THE AMLODIPINE. 5. DIABETES MELLITUS TYPE 2, NON-INSULIN AT HOME WITH NO LONG-TERM INSULIN USE BUT AT PRESENT ON SLIDING SCALE INSULIN. CONTINUE CURRENT ANTIDIABETIC MEDICATION. NOTE THAT THE PATIENT'S HEMOGLOBIN A1C WAS VERY HIGH AND WHICH SHOWS UNCONTROLLED DIABETES MELLITUS. 6. HISTORY OF CVA, RESOLVED. THERE IS SOME SLIGHT SLURRED SPEECH. 7. DEPRESSION. 8. HYPOKALEMIA. 9. MILD HYPONATREMIA. PLAN: Continue IV fluids. Continue antibiotics. Continue respiratory treatments. Note, the patient is FULL CODE. Her daughter is her surrogate healthcare decision maker. Will follow with you. A discussed the case with the attending physician on the case and also nurse taking care of the patient. Note, 30 minutes were spent on this patient with more than 50% of the time spent on direct patient care, also reviewed with this. DICTATING PHYSICIAN: NASRIN KLEIN M.D. [id number] PHY#: [id number] ID: [id number] JOB#: [id number] ACCT: [id number] cc:NASRIN KLEIN M.D. >
[2016-11-13] MEDS: LISINOPRIL 10 MG TABLET PO SCH (21:13)
[2016-11-13] MEDS ORDERED: METOPROLOL TARTRATE PF/INJ 5 MG/5 ML SDV IV ONE ×2 (21:56→22:15)
[2016-11-14] MEDS ORDERED: NYSTATIN 500000 UNIT/5 ML UDCUP PO ONE (00:30)
[2016-11-14] MEDS: IPRATROPIUM/ALBUTEROL 0.5-2.5 MG/3 ML AMPUL NEB SCH ×4 (02:10→20:55)
[2016-11-14 05:46] LABS: ABSOLUTE LYMPHOCYTES (AUTO) 0.7 10^3/uL (0.5-4.7); ABSOLUTE MONOCYTES (AUTO) 0.5 10^3/uL (0.1-1.4); ABSOLUTE NEUT (AUTO) 4.1 10^3/uL (1.7-8.2); BASOPHILS % (AUTO) 0.1 % (0-2); HEMATOCRIT 37.2 % (36.0-47.0); HEMOGLOBIN 12.7 g/dL (12.0-15.5); HGB HCT DIFFERENCE 0.9; LYMPHOCYTES % (AUTO) 13.2 % (13-45); MEAN CORPUSCULAR HEMOGLOBIN 29.3 pg (27.0-33.4); MEAN CORPUSCULAR HGB CONC 34.2 g/dL (32.0-36.0); MEAN CORPUSCULAR VOLUME 86 fl (80-97); MONOCYTES % (AUTO) 9.1 % (3-13); RED BLOOD COUNT 4.35 10^6/uL (3.72-5.28); RED CELL DISTRIBUTION WIDTH 13.1 % (11.5-14.0); SEGMENTED NEUTROPHILS % (AUTO) 77.6 % (42-78); WHITE BLOOD COUNT 5.3 10^3/uL (4.0-10.5)
[2016-11-14] MEDS: NYSTATIN 500000 UNIT/5 ML UDCUP PO SCH ×4 (05:51→23:26)
[2016-11-14] MEDS: HEPARIN SOD (PORCINE) 5,000 UNIT/ML 1 ML SYRINGE SUBCUT SCH ×3 (05:52→22:10)
[2016-11-14] MEDS: DILTIAZEM HCL/D5W 125 MG/125 ML RTUINJ IV PRN (05:54)
[2016-11-14 05:55] LABS: ANION GAP 13 (5-19); BLOOD UREA NITROGEN 5 mg/dL (7-20); CALCIUM 9.1 mg/dL (8.4-10.2); CARBON DIOXIDE 27 mmol/L (22-30); CHLORIDE 94 mmol/L (98-107); CREATININE RESULT 0.59 mg/dL (0.52-1.25); GLUCOSE 205 mg/dL (75-110); SODIUM 134.1 mmol/L (137-145)
[2016-11-14 05:59] LABS: POTASSIUM 2.9 mmol/L (3.6-5.0)
[2016-11-14] MEDS ORDERED: POTASSIUM CHLORIDE 10 MEQ TABLET.SA PO ONE (07:00)
[2016-11-14] MEDS: LISINOPRIL 10 MG TABLET PO SCH ×2 (09:36→22:09)
[2016-11-14] MEDS: GUAIFENESIN 600 MG TABLET.SA PO SCH ×2 (09:36→22:10)
[2016-11-14] MEDS: AMLODIPINE BESYLATE 5 MG TABLET PO SCH ×2 (09:37→22:09)
[2016-11-14] MEDS: CLOPIDOGREL BISULFATE 75 MG TABLET PO SCH (09:37)
[2016-11-14] MEDS: ASPIRIN 81 MG TABLET, ENT COATED PO SCH (09:37)
[2016-11-14] MEDS: LEVOFLOXACIN 750 MG/D5W RTU 750 MG/150 ML RTUPB IV SCH (09:37)
[2016-11-14] MEDS: POTASSI CL 20 MEQ/50 ML RIDER 20 MEQ/50 ML RTUPB IV SCH ×2 (09:38→11:35)
[2016-11-14] MEDS ORDERED: DILTIAZEM HCL 120 MG CAP.SR.24H PO ONE (11:30)
--- NOTE | 2016-11-14 14:27 | PDOC PROGRESS REPORT ---
Subjective Progress Note for:: 11/14/16 Subjective:: Complains of a nonproductive cough this morning. Physical Exam Vital Signs: Temp Pulse Resp BP Pulse Ox 98.6 F 101 H 20 159/64 H 98 11/14/16 12:08 11/14/16 12:08 11/14/16 12:08 11/14/16 13:01 11/14/16 12:08 Intake & Output 11/13/16 11/14/16 11/15/16 06:59 06:59 06:59 Intake Total 3115 3002 437 Output Total 1650 900 Balance 1465 2102 437 Weight 89 kg 91 kg General appearance: PRESENT: no acute distress Eye exam: PRESENT: conjunctiva pink. ABSENT: scleral icterus Mouth exam: PRESENT: moist, tongue midline Neck exam: ABSENT: JVD Respiratory exam: PRESENT: rhonchi - Coarse rhonchi in the left base. Cardiovascular exam: PRESENT: irregular rhythm, systolic murmur - 2/6 systolic murmur. GI/Abdominal exam: PRESENT: normal bowel sounds, soft. ABSENT: distended, guarding, mass, organolmegaly, rebound, tenderness Extremities exam: PRESENT: pedal edema - Trace pedal edema.. ABSENT: calf tenderness, clubbing Neurological exam: PRESENT: alert, awake, oriented to person, oriented to place , oriented to time, oriented to situation Psychiatric exam: PRESENT: appropriate affect Skin exam: PRESENT: dry, intact, warm. ABSENT: cyanosis, rash Results Laboratory Results: 11/14/16 05:06 11/14/16 05:06 11/14/16 11/14/16 05:06 05:06 WBC 5.3 RBC 4.35 Hgb 12.7 Hct 37.2 MCV 86 MCH 29.3 MCHC 34.2 RDW 13.1 Plt Count 150 Seg Neutrophils % 77.6 Lymphocytes % 13.2 Monocytes % 9.1 Eosinophils % 0.0 Basophils % 0.1 Absolute Neutrophils 4.1 Absolute Lymphocytes 0.7 Absolute Monocytes 0.5 Absolute Eosinophils 0.0 Absolute Basophils 0.0 Sodium 134.1 L Potassium 2.9 L* Chloride 94 L Carbon Dioxide 27 Anion Gap 13 BUN 5 L Creatinine 0.59 Est GFR ( Amer) > 60 Est GFR (Non-Af Amer) > 60 Glucose 205 H Calcium 9.1 11/12/16 11/12/16 11/12/16 02:15 02:15 10:20 Creatine Kinase 1175 H 1310 H CK-MB (CK-2) 2.27 Troponin I 0.419 11/12/16 10:20 Creatine Kinase CK-MB (CK-2) 2.18 Troponin I 0.301 Impressions: Head CT 11/11/16 17:07 IMPRESSION: No significant abnormalities on brain CT. Head MRI 11/12/16 08:23 IMPRESSION: MINIMAL MICROVASCULAR ISCHEMIC CHANGE. OTHERWISE NORMAL STUDY. Chest X-Ray 11/14/16 10:30 IMPRESSION: Few Elisa lines at the bases, question minimal interstitial edema Assessment & Plan - Diagnosis (1) Pneumonia Qualifiers: Pneumonia type: due to unspecified organism Laterality: left Lung location: lower lobe of lung Qualified Code(s): J18.1 - Lobar pneumonia, unspecified organism Is this a current diagnosis for this admission?: YesPlan: Patient had a left basilar pneumonia on the initial chest x-ray. Repeat chest x -ray today shows clearing. We'll continue with the Levaquin. (2) CVA (cerebral vascular accident) Is this a current diagnosis for this admission?: YesPlan: Patient had slurred speech. This has resolved. Most likely had a TIA. (3) Hypokalemia Is this a current diagnosis for this admission?: YesPlan: Has been getting potassium replacement. Will check a potassium level this afternoon. (4) Atrial fibrillation Is this a current diagnosis for this admission?: YesPlan: Patient was seen by cardiology who thinks this is not atrial fibrillation but is atrial tachycardia.. Patient is on diltiazem. We'll follow Dr. Ordonez's recommendations. (5) Hypomagnesemia Is this a current diagnosis for this admission?: YesPlan: Resolved. (6) Hyponatremia Is this a current diagnosis for this admission?: YesPlan: Improving with IV fluids. - Time Time Spent with patient: 25-34 minutes - Inpatient Certification Medical Necessity: Need For IV Fluids, Need for IV Antibiotics
[2016-11-14] MEDS: INSULIN LISPRO 100 UNIT/ML 3 ML VIAL SUBCUT PRN ×2 (16:16→23:27)
--- NOTE | 2016-11-14 17:20 | XCELERA REPORT ---
[address] [address] Transthoracic Echocardiogram Report Name: THA VERNON Age: 71 yrs Gender: Female : 1945 Patient Status: Inpatient Patient Location: 3S\S\331\S\A Study Date: 11/14/2016 01:47 PM Height: 65 in Weight: 196 lb BSA: 2.0 m2 Procedure: A two-dimensional transthoracic echocardiogram with color flow and Doppler was performed. The study was technically difficult with many images being suboptimal in quality. Reason For Study: MR / Elevated Troponin History: MR / Elevated Troponin. Ordering Physician: RASHMI KLEIN Performed By: Vida Ragland Interpretation Summary The left ventricle is normal in size. There is normal left ventricular wall thickness. LV EF is 65% Left ventricular systolic function is normal. Doppler measurements suggest impaired left ventricular relaxation, which is associated with grade I/IV or mild diastolic dysfunction The left ventricular wall motion is normal. There is no evidence of mitral valve prolapse. There is no mitral valve stenosis. There is a trace amount of mitral regurgitation There is mild aortic stenosis There is a peak gradient of 23 mm of Hg. There is no tricuspid stenosis. There is a trace amount of tricuspid regurgitation Right ventricular systolic pressure is normal. RVSP is 25 mm of Hg , with RA mean of 5. There is no pericardial effusion. MMode/2D Measurements \T\ Calculations RVDd: 2.2 cm LVIDd: 5.0 cm FS: 34.7 % Ao root diam: 3.1 cm IVSd: 0.86 cm LVIDs: 3.3 cm EDV(Teich): 118.3 ml LVPWd: 0.93 cmESV(Teich): 43.0 ml Ao root area: 7.4 cm2 EF(Teich): 63.7 % LA dimension: 3.7 cm LVOT diam: 2.0 cm LVOT area: 3.2 cm2 Doppler Measurements \T\ Calculations MV E max brent: MV P1/2t max brent: Ao V2 max: LV V1 max P.4 cm/sec 96.0 cm/sec 238.5 cm/sec 5.7 mmHg MV A max brent: MV P1/2t: 37.4 msec Ao max PG: LV V1 max: 159.7 cm/sec MVA(P1/2t): 5.9 cm2 22.8 mmHg 119.3 cm/sec MV E/A: 0.61 MV dec slope: PB(V,D): 1.6 cm2 751.4 cm/sec2 MV dec time: 0.13 sec PA V2 max: TR max brent: 80.0 cm/sec 221.1 cm/sec PA max P.6 mmHgTR max P.5 mmHg Left Ventricle The left ventricle is normal in size. There is normal left ventricular wall thickness. LV EF is 65%. Left ventricular systolic function is normal. Doppler measurements suggest impaired left ventricular relaxation, which is associated with grade I/IV or mild diastolic dysfunction. The left ventricular wall motion is normal. There is no thrombus. Right Ventricle The right ventricle is normal in size and function. Atria The right atrium is normal. The left atrial size is normal. Mitral Valve There is no evidence of mitral valve prolapse. There is no vegetation seen on the mitral valve. There is no mitral valve stenosis. There is a trace amount of mitral regurgitation. Aortic Valve There is no aortic valvular vegetation. There is no LVOT obstruction. There is mild aortic stenosis. There is a peak gradient of 23 mm of Hg. No aortic regurgitation is present. Tricuspid Valve There is no tricuspid stenosis. There is a trace amount of tricuspid regurgitation. Right ventricular systolic pressure is normal. RVSP is 25 mm of Hg , with RA mean of 5. Pulmonic Valve There is no pulmonic valvular stenosis. There is no pulmonic valvular regurgitation. Great Vessels The aortic root is not well visualized but is probably normal size. Effusions There is no pericardial effusion. : RASHMI KLEIN > Rashmi Klein
--- NOTE | 2016-11-14 21:13 | PROGRESS NOTE E ---
Progress Note NAME: THA VERNON : 1945 AGE: 71Y DATE: 11/14/2016 ROOM: 331 SUBJECTIVE: The patient states her shortness of breath is much improved, but she still has some cough which is nonproductive. She still has orthopnea. There is no PND or leg edema. There is no chest pain or discomfort. The patient is at present in chaotic atrial mechanism with a heart rate of 98 beats per minute. There is no ventricular arrhythmia on the monitor. There is no atrial fibrillation or flutter seen. There are no TIA or CVA symptoms. OBJECTIVE: GENERAL: On examination, the patient is mildly obese, in no acute distress. VITAL SIGNS: She is afebrile with a temperature of 98.5 degrees Fahrenheit. Pulse is 98 beats per minute. Blood pressure is 152/62. Respirations are 24 per minute. O2 saturations are 96% on 3 liters nasal cannula. HEAD: Atraumatic/normocephalic. EYES: Pupils are equal, round, regular, reactive to light and accommodation. Extraocular movements are normal. There is no conjunctival pallor. There is no scleral icterus. EARS, NOSE, AND THROAT: Negative. NECK: Supple. There is no JVD. Carotids are equal. There is no bruit. There is no lymphadenopathy. Trachea is central. CHEST: There are no accessory muscles of respirations in use. There are scattered rhonchi bilaterally, much less than yesterday, and dry crackles on the left base. There is diminished air entry and prolonged expiration on auscultation throughout. On percussion, there is hyperresonance. HEART: S1, S2 is heard. There is no S3 gallop. There is no S4 gallop. S1 is of normal intensity. There is a systolic murmur of mitral regurgitation present. There is no rub. ABDOMEN: Soft, nontender. There is no hepatosplenomegaly. Bowel sounds are well heard. EXTREMITIES: Femorals are diminished. There is no femoral bruit. Leg pulses are diminished. There is no pedal edema. There is no DVT or cellulitis. CENTRAL NERVOUS SYSTEM: The patient is conscious, awake, alert, oriented x3 with no focal deficit. PSYCHIATRIC: The patient's judgment and insight are intact. Her affect is normal. FLUID BALANCE: The patient's 24-hour intake is 3002 mL, output is 900 mL. DIAGNOSTIC DATA: The patient's chest x-ray shows a few curly lines in the bases, question of minimum interstitial edema. No infiltrates worrisome for perihilar pulmonary edema or lobar pneumonia but to me there seems to be no evidence of congestive heart failure. The patient's echocardiogram was a technically difficult study. The left ventricle is normal in size. There is normal left ventricular wall thickness. The LV ejection fraction is 65%. LV systolic function is normal. Doppler measurements suggest impaired left ventricular relaxation associated with grade 1/4 mild diastolic dysfunction. The left ventricular wall motion is normal. There is no thrombus. The right ventricular size is normal in size and function. The right atrium is normal. The left atrial size is normal. There is no evidence of mitral valve prolapse. There is no vegetation seen on the mitral valve. There is no mitral valve stenosis. There is trace amount of mitral regurgitation. There is aortic stenosis with a peak gradient of 23 mmHg. No aortic regurgitation present. There is a trace amount of tricuspid regurgitation. Right ventricular systolic pressure is normal at 25 mmHg with a right atrial mean of 5. There is no pericardial effusion. The patient's white count is 5300, hemoglobin is 12.7, hematocrit is 37.2, and her platelet count is 150,000. The patient's sodium is 134, potassium 2.9, chloride 94, CO2 is 27, the patient's BUN is 5, creatinine 0.59, GFR is greater than 60, her glucose is 205, and calcium is 9.1. IMPRESSION: 1. LEFT LOWER LOBE PNEUMONIA, IMPROVING. 2. ACUTE EXACERBATION OF COPD. 3. CHAOTIC ATRIAL MECHANISM/RHYTHM/MULTIFOCAL ATRIAL TACHYCARDIA; NO EVIDENCE OF ATRIAL FIBRILLATION. Note that the patient is on IV Cardizem. We will stop the IV Cardizem and start the patient on Cardizem CD 120 mg p.o. now and 120 mg p.o. q.12 h. Will discontinue the patient's amlodipine. 4. HYPERTENSION. Blood pressure is reasonable but not still fully controlled. We will continue the patient on lisinopril and Cardizem has been added. 5. DIABETES MELLITUS TYPE 2, NON-INSULIN AT HOME WITH NO LONG-TERM INSULIN USE BUT AT PRESENT ON SLIDING SCALE INSULIN. Continue current antidiabetic medication. 6. HISTORY OF CVA, RESOLVED. There is some slight slurred speech. 7. DEPRESSION. 8. HYPOKALEMIA IN SPITE OF BEING REPLACED. 9. MILD HYPONATREMIA. PLAN: Would at present stop the IV fluids, continue antibiotics. As mentioned earlier, the patient's IV Cardizem has been discontinued and the patient has been started on p.o. Cardizem. Would continue the patient on lisinopril, continue antidiabetic medication. Replace the patient's potassium. In view of the patient's persistent hypokalemia, will get serum aldosterone levels, serum renin activity and aldosterone renin ratio to make sure the patient does not have aldosteronism causing hypertension and hypokalemia. Note: Echo discussed with the patient. Note, 35 minutes were spent on this patient with more than 50% of the time spent on direct patient care. Note that the patient's medications were reviewed and were adjusted and changed. This was discussed with the hospitalist taking care of the patient. Will follow with you. Thanking you. DICTATING PHYSICIAN: NASRIN KLEIN M.D. [id number] PHY#: [id number] ID: [id number] JOB#: [id number] ACCT: [id number] cc: >
[2016-11-14 22:06] LABS: ANION GAP 12 (5-19); BLOOD UREA NITROGEN 4 mg/dL (7-20); CALCIUM 9.2 mg/dL (8.4-10.2); CARBON DIOXIDE 24 mmol/L (22-30); CHLORIDE 98 mmol/L (98-107); CREATININE RESULT 0.55 mg/dL (0.52-1.25); GLUCOSE 176 mg/dL (75-110); POTASSIUM 3.5 mmol/L (3.6-5.0); SODIUM 133.7 mmol/L (137-145)
[2016-11-14] MEDS: DILTIAZEM HCL 120 MG CAP.SR.24H PO SCH (22:09)
[2016-11-15] MEDS: IPRATROPIUM/ALBUTEROL 0.5-2.5 MG/3 ML AMPUL NEB SCH ×4 (02:30→20:37)
--- NOTE | 2016-11-15 03:18 | CONSULTATION REPORT E ---
Consultation Report NAME: THA VERNON : 1945 AGE: 71Y DATE: 11/12/2016 331 A TO: NASRIN KLEIN M.D. FROM: KP HILARIO M.D. Requesting Physician REASON FOR CONSULTATION: Elevated troponin I and tachycardia. Diagnosis: Atrial fibrillation with rapid ventricular response. HISTORY OF PRESENT ILLNESS: The patient is a 71-year-old female with known history of hypertension, diabetes mellitus type 2, and history of COPD with tobacco abuse, who states that since about 2 to 3 weeks prior to her onset of symptoms, has been having intermittent diarrhea which is loose without any abdominal pain. About 2 to 3 days prior to her admission, the patient started having cough, wheezing, and nonproductive sputum with orthopnea and some ankle edema but no leg edema. She had been profoundly short of breath. She had a fever; the exact temperature not known but no chills or rigors. She came to the emergency room where she was found to have a magnesium of 1.0, potassium was 3.2 and subsequently came to 3.0, and also elevated troponin I of 0.538 with a negative CPK-MB. She was also found to be tachycardic and rhythm strip shows that this is not atrial fibrillation and this is multifocal atrial tachycardia. The patient denies any chest pain. There is no PND. The patient denies any palpitations although her heart rate goes up. Even when the patient is on her current medication including Cardizem drip, when she sits down to go on the bedside, her heart rate goes up to 150s. At that time she feels palpitations. There is no dizziness, headache. There is no prior history of cardiac arrhythmia. There is no history of congestive heart failure. There is no history of coronary artery disease or chest pain or discomfort. Daughter thinks that patient's speech is a little more slurred. PAST MEDICAL HISTORY: Positive for: 1. Hypertension. 2. COPD. 3. Diabetes mellitus type 2, non-insulin dependent. 4. Depression. PAST SURGICAL HISTORY: Partial hysterectomy. SOCIAL HISTORY: The patient smokes. There is no history of EtOH abuse. CODE STATUS: The patient is FULL CODE. Her daughter is her healthcare power of associate attorney. ALLERGIES: No known allergies. FAMILY HISTORY: Positive for coronary artery disease, hypertension, and diabetes mellitus. MEDICATIONS: Reviewed as per MAR. REVIEW OF SYSTEMS: CONSTITUTIONAL: Complains of fever but no chills or rigors. Complains of generalized fatigue. HEAD: Denies any dizziness or head injury. EYES: No history of amblyopia or diplopia. No history of amaurosis fugax. EARS: No history of hearing loss. No history of tinnitus. No history of recurrent ear infections. NOSE: No history of nosebleeds. No history of hay fever. No history of bleeding from the nose. MOUTH: No history of altered taste sensation. No ulcers in the mouth. No bleeding from the gums. The patient does feel her mouth to be dry. THROAT: No history of odynophagia or dysphagia. No history of recurrent sore throat. SKIN: No history of skin psoriasis or skin cancer. No history of pruritus. No history of yellowish discoloration of the skin. NECK: No history of enlarged neck lymph nodes. No painful or painless swelling in the neck. No goiter. LUNGS: History of COPD. Patient with wheezing and nonproductive cough. No chest pain. No history of sleep apnea. No history of pulmonary embolism. No hemoptysis. No pleuritic chest pain. CARDIAC: History of hypertension. No prior history of coronary artery disease, MD, or anginal symptoms. No history of congestive heart failure. History of palpitations when her heart rate goes up to 150 which is multifocal atrial tachycardia. No history of hypertension present. No history of congestive heart failure. No history of rheumatic fever. No history of coronary artery disease. No history of leg edema but does have some ankle edema which is gone now. No history of syncope. GASTROINTESTINAL: No history of GI bleed. No history of fatty food intolerance. History of painless diarrhea off and on since the last 3 weeks prior to her symptoms of shortness of breath. No history of jaundice. No history of hepatitis. MUSCULOSKELETAL: Denies arthritis or collagen vascular disease. ENDOCRINE: History of diabetes mellitus type 2, non-insulin dependent. No history of thyroid disease. No history of polydipsia or polyuria. No history of heat or cold intolerance. RENAL: No history of chronic kidney disease. No history of UTI. No symptoms of hematuria, pyuria, or dysuria. CENTRAL NERVOUS SYSTEM: Past history of CVA with mild right-sided weakness which has resolved but the patient states she still has a little slurred speech but no other major problems. She has no history of sleep apnea. No history of seizures, headaches, or migraines. No history of gait imbalance. PSYCHIATRIC: No history of anxiety or depression. No history of suicidal ideation. VASCULAR: No history of calf or buttock claudication. No history of DVT. HEMATOLOGICAL: No history of bleeding diathesis. No history of clotting disorders. PHYSICAL EXAMINATION: GENERAL: The patient is mildly obese, in some distress due to shortness of breath due to wheezing. VITAL SIGNS: She is afebrile with a temperature of 98.4 degrees Fahrenheit. Pulse is 97 beats per minute. Blood pressure 115/71. Respirations are 18 per minute. Oxygen saturations are 98% on 1.5 L nasal cannula. HEAD: Atraumatic/normocephalic. EYES: Pupils are equal, round, regular, reactive to light and accommodation. Extraocular movements are normal. There is no conjunctival pallor. There is no scleral icterus. EARS: Tympanic membranes are intact. External auditory canals are clear. NOSE: There is no deviated nasal septum. There is no inflammation of the nasal mucous membranes. MOUTH: Mucous membranes of the mouth and tongue are dry. There are no ulcers. There is no bleeding from the gums. THROAT: There is no redness of the oropharynx. There are no exudate. SKIN: There are no skin rashes. There is no petechia or ecchymosis. There are no skin lesions. NECK: Supple. There is no JVD. Carotids are equal. There is no bruit. There is no lymphadenopathy. There is no goiter. Trachea is central. LUNGS: No definite accessory muscles of respiration were used. There is scattered rhonchi and wheezing bilaterally with a few dry crackles in left lower lobe. There is hyperresonance on percussion. There is diminished air entry and prolonged expiration. HEART: S1, S2 is heard. There is no S3 gallop. There is no S4 gallop. There is systolic murmur left sternal border in the apex. There is no rub. ABDOMEN: Soft, nontender. There is no hepatosplenomegaly. Bowel sounds are well heard. There are no tender areas or masses. EXTREMITIES: Femorals are well felt. Leg pulses are well felt. There are no femoral bruits. There is trace ankle edema. There is no edema of her leg. There is no calf tenderness. There is no cyanosis or clubbing. CENTRAL NERVOUS SYSTEM: The patient is conscious, awake, alert, oriented x3 with no focal deficits. PSYCHIATRIC: The patient's judgement and insight are intact. Her affect is normal. DIAGNOSTIC DATA: The patient's EKG shows chaotic atrial mechanism, borderline left axis deviation. A subsequent EKG shows chaotic atrial mechanism with 1 PVC, abnormal R-wave progression most likely secondary to lead placement. The patient's head CT shows no significant abnormalities on the brain CT. The patient's chest x-ray shows increased density around the left heart border which could be related to prominent epicardial fat. *------* must also be considered. There is no congestive heart failure. Cardiac size is upper normal limits. The patient's head MRI shows a few high signal intensity lesions scattered throughout the white matter on FLAIR imaging in the cerebrum suggesting chronic microvascular/ishemic change. No other major pathology. The patient's EKG on 11/12/16 shows chaotic atrial mechanism, left axis deviation. The patient's sodium is 131.6, potassium 3.0, chloride is 89, CO2 is 32. The patient's BUN is 10, creatinine is 0.79. GFR is greater than 60. The patient's initial troponin I was 0.538 and subsequently has trended down to 0.419. The patient's lipase is 26.8. Her TSH is 1.23. The patient NT-proBNP was 1580. TSH was normal at 1.23. The patient's glucose is 149. A hemoglobin A1c is 5.8. Magnesium on 11/11/16 was 1.0 and subsequently after replacement on 11/12/16 it is 1.7. Troponin I has trended down to 0.301. The patient's white count is 5,800, hemoglobin is 12.3, hematocrit is 34.1, platelet count is 134,000. IMPRESSION: 1. Elevated troponin I, most likely secondary to dehydration, multifocal atrial tachycardia, and acute exacerbation of COPD and pneumonia. 2. Electrolyte imbalance with hypokalemia and hypomagnesemia on admission. Magnesium has been corrected. The patient still has decreased potassium levels. 3. COPD, acute exacerbation. 4. Left lower lobe/lingula pneumonia. 5. Multifocal atrial tachycardia/chaotic atrial mechanism. 6. Dehydration. 7. Diabetes mellitus type 2, non-insulin dependent. 8. Hypertension. 9. Tobacco abuse. 10. Depression. RECOMMENDATIONS: We will increase the patient's Cardizem drip intravenously to 10 mg and if needed 15 mg per hour. We will continue antibiotics. We will continue antibiotics. Continue anti-COPD treatments along with steroids. Would not treat this as an [id number] MD. TIME SPENT: Note, 40 minutes spent on this patient with more than 50% of the time spent on direct patient care and reviewing the patient's medication and adjusting them, and also discussions with the patient and also with the attending physicians and other caregivers on this case. We will follow with you. Again, I see no evidence of atrial fibrillation. This rhythm is consistent with chaotic atrial mechanism/multifocal atrial tachycardia. DICTATING PHYSICIAN: NASRIN KLEIN M.D. [id number] PHY#: [id number] ID: [id number] JOB#: [id number] ACCT: [id number] cc:NASRIN KLEIN M.D. >
[2016-11-15] MEDS: HEPARIN SOD (PORCINE) 5,000 UNIT/ML 1 ML SYRINGE SUBCUT SCH ×3 (06:09→21:43)
[2016-11-15] MEDS: NYSTATIN 500000 UNIT/5 ML UDCUP PO SCH ×3 (06:09→18:44)
[2016-11-15 06:32] LABS: ABSOLUTE LYMPHOCYTES (AUTO) 1.2 10^3/uL (0.5-4.7); ABSOLUTE MONOCYTES (AUTO) 0.7 10^3/uL (0.1-1.4); ABSOLUTE NEUT (AUTO) 3.2 10^3/uL (1.7-8.2); BASOPHILS % (AUTO) 0.3 % (0-2); EOSINOPHILS % (AUTO) 0.1 % (0-6); HEMATOCRIT 36.1 % (36.0-47.0); HEMOGLOBIN 12.4 g/dL (12.0-15.5); HGB HCT DIFFERENCE 1.1; MEAN CORPUSCULAR HGB CONC 34.2 g/dL (32.0-36.0); MEAN CORPUSCULAR VOLUME 85 fl (80-97); MONOCYTES % (AUTO) 13.1 % (3-13); RED BLOOD COUNT 4.26 10^6/uL (3.72-5.28); RED CELL DISTRIBUTION WIDTH 12.7 % (11.5-14.0); SEGMENTED NEUTROPHILS % (AUTO) 62.5 % (42-78); WHITE BLOOD COUNT 5.2 10^3/uL (4.0-10.5)
[2016-11-15 06:49] LABS: BLOOD UREA NITROGEN 3 mg/dL (7-20); CARBON DIOXIDE 25 mmol/L (22-30); CHLORIDE 99 mmol/L (98-107); POTASSIUM 3.2 mmol/L (3.6-5.0)
[2016-11-15 07:00] LABS: ANION GAP 10 (5-19); CALCIUM 9.1 mg/dL (8.4-10.2); CREATININE RESULT 0.57 mg/dL (0.52-1.25); GLUCOSE 172 mg/dL (75-110); SODIUM 134.2 mmol/L (137-145)
[2016-11-15 07:04] LABS: MAGNESIUM 1.2 mg/dL (1.6-2.3)
[2016-11-15] MEDS: LISINOPRIL 10 MG TABLET PO SCH ×2 (09:15→21:42)
[2016-11-15] MEDS: CLOPIDOGREL BISULFATE 75 MG TABLET PO SCH (09:16)
[2016-11-15] MEDS: AMLODIPINE BESYLATE 5 MG TABLET PO SCH (09:16)
[2016-11-15] MEDS: GUAIFENESIN 600 MG TABLET.SA PO SCH ×2 (09:16→21:43)
[2016-11-15] MEDS: DILTIAZEM HCL 120 MG CAP.SR.24H PO SCH ×2 (09:16→21:42)
[2016-11-15] MEDS: LEVOFLOXACIN 750 MG TABLET PO SCH (09:19)
--- NOTE | 2016-11-15 11:27 | PDOC PROGRESS REPORT ---
Subjective Progress Note for:: 11/15/16 Subjective:: Patient seems to be doing better with gradual improvement. Pt is denying any chest arm or neck discomfort. Patient denying any PND, orthopnea. Patient denied any sustained palpitations, dizziness, syncope, near syncope. Patient denying any fever chills. Patient denying any other significant discomfort. Patient is maintaining sinus rhythm. Frequent APCs are noted Review of systems: Rest review of systems negative. Medications: Medications have been reviewed. Physical Exam Vital Signs: Temp Pulse Resp BP Pulse Ox 98.1 F 53 L 22 H 154/67 H 94 11/15/16 07:41 11/15/16 07:41 11/15/16 07:41 11/15/16 07:41 11/15/16 07:41 Intake & Output 11/14/16 11/15/16 11/16/16 06:59 06:59 06:59 Intake Total 3002 2716 Output Total 900 Balance 2102 2716 Weight 91 kg 91 kg Exam: GENERAL: well-nourished and in no acute distress. Alert and oriented x3 HEAD: Atraumatic, normocephalic. EYES: Pupils equal round and reactive to light, extraocular movements intact, sclera anicteric, conjunctiva are normal. ENT: TMs normal, nares patent, oropharynx clear without exudates. Moist mucous membranes. No oral ulcerations or bleeding gums noted NECK: supple without lymphadenopathy. Trachea is central. No cervical or axillary lymphadenopathy noted. Carotids are 2+, JVD WNL LUNGS: Respiration seems nonlabored, no significant accessory muscle action noted. Breath sounds clear to auscultation bilaterally and equal. No wheezes rales or rhonchi. No significant dullness noted on percussion. CHEST: Palpation of the chest wall shows no significant chest wall tenderness or abnormalities. HEART: [place] [employer] BRUSHER, No PSH, 1/6 RONNIE aortic area, 1/6 riley systolic murmur mitral area, no rubs, no gallops. ABDOMEN: Soft, no significant tenderness appreciated, normoactive bowel sounds. No guarding, no rebound. No rigidity noted . No masses appreciated. EXTREMITIES: Pedal pulses are 1-2+, no calf tenderness noted. No clubbing or cyanosis.trace to 1+ pedal edema noted NEUROLOGICAL: Focused neurological exam showed no significant neurologic deficit. Normal speech, no focal weakness appreciated. PSYCH: Normal mood, normal affect. Judgment and insight within normal limits. SKIN: No significant ecchymosis, rash, ulcerations or signs of pruritus noted. MUSCULOSKELETAL EXAM: No significant joint swelling noted. Results Laboratory Results: 11/15/16 06:18 11/15/16 06:18 11/14/16 11/15/16 11/15/16 21:30 06:18 06:18 WBC 5.2 RBC 4.26 Hgb 12.4 Hct 36.1 MCV 85 MCH 29.0 MCHC 34.2 RDW 12.7 Plt Count 169 Seg Neutrophils % 62.5 Lymphocytes % 24.0 Monocytes % 13.1 H Eosinophils % 0.1 Basophils % 0.3 Absolute Neutrophils 3.2 Absolute Lymphocytes 1.2 Absolute Monocytes 0.7 Absolute Eosinophils 0.0 Absolute Basophils 0.0 Sodium 133.7 L 134.2 L Potassium 3.5 L 3.2 L Chloride 98 99 Carbon Dioxide 24 25 Anion Gap 12 10 BUN 4 L 3 L Creatinine 0.55 0.57 Est GFR ( Amer) > 60 > 60 Est GFR (Non-Af Amer) > 60 > 60 Glucose 176 H 172 H Calcium 9.2 9.1 Magnesium 1.2 L* 11/12/16 11/12/16 11/12/16 02:15 02:15 10:20 Creatine Kinase 1175 H 1310 H CK-MB (CK-2) 2.27 Troponin I 0.419 11/12/16 10:20 Creatine Kinase CK-MB (CK-2) 2.18 Troponin I 0.301 Impressions: Head CT 11/11/16 17:07 IMPRESSION: No significant abnormalities on brain CT. Head MRI 11/12/16 08:23 IMPRESSION: MINIMAL MICROVASCULAR ISCHEMIC CHANGE. OTHERWISE NORMAL STUDY. Chest X-Ray 11/14/16 10:30 IMPRESSION: Few Elisa lines at the bases, question minimal interstitial edema Assessment & Plan - Diagnosis (1) Multifocal atrial tachycardia Is this a current diagnosis for this admission?: YesPlan: This is coming under control. Most likely related to COPD exacerbation and pneumonia. Agree with treatment with Cardizem. (2) Hypokalemia Is this a current diagnosis for this admission?: YesPlan: Recommend potassium level be maintained around 4 mg/L. Replace as needed. (3) Hypomagnesemia Is this a current diagnosis for this admission?: YesPlan: Magnesium level low today. Recommend magnesium supplementation. Bring level above 1.6 mg/dL (4) Pneumonia Qualifiers: Pneumonia type: due to unspecified organism Laterality: left Lung location: lower lobe of lung Qualified Code(s): J18.1 - Lobar pneumonia, unspecified organism Is this a current diagnosis for this admission?: YesPlan: Continue antibiotic therapy. (5) Hypertension Qualifiers: Hypertension type: essential hypertension Qualified Code(s): I10 - Essential (primary) hypertension Is this a current diagnosis for this admission?: YesPlan: Blood pressure goal in this patient is 135/85 or less. This was discussed with the patient. Currently blood pressure under reasonable control. Better medication for this patient are VANITA inhibitor/ARB/beta sekou etc. discussed side effects of uncontrolled hypertension and also severe hypotension. (6) Diabetes Qualifiers: Diabetes mellitus type: type 2 Diabetes mellitus complication status: with unspecified complications Is this a current diagnosis for this admission?: YesPlan: Recommend good control of blood sugar. However should avoid any hypoglycemia. Patient being expertly managed by primary care MJeremy (7) Elevated troponin I level Is this a current diagnosis for this admission?: YesPlan: Patient has significant cardiac risk factors, she also gives history of blockages in the past and prior stroke. Patient has high probability of underlying CAD. Will schedule patient for a nuclear stress test. - Notes Notes: CODE STATUS was discussed, patient remains full code. Surrogate decision-maker patient's daughter. Multiple medical problems were addressed. - Time Time with patient: 15-25 minutes - More than 50% of the time spent coordinating care, discussing management plans with involved caregivers. Management plans discussed with involved personnels. Medical decision making was of moderate complexity.
[2016-11-15] MEDS ORDERED: NORMAL SALINE 1000 ML 1,000 ML IV PRN (14:41)
--- NOTE | 2016-11-15 14:47 | PDOC PROGRESS REPORT ---
Subjective Progress Note for:: 11/15/16 Subjective:: Feeling better but generally weak. Denies chills or fever or diarrhea. No nausea or vomiting or chest pain. Shortness of breath is much better. Denies any wheezing. Patient refusing to go to subacute rehabilitation. Physical Exam Vital Signs: Temp Pulse Resp BP Pulse Ox 97.8 F 110 H 20 165/92 H 92 11/15/16 12:09 11/15/16 13:39 11/15/16 13:39 11/15/16 12:09 11/15/16 13:39 Intake & Output 11/14/16 11/15/16 11/16/16 06:59 06:59 06:59 Intake Total 3002 2716 350 Output Total 900 Balance 2102 2716 350 Weight 91 kg 91 kg General appearance: PRESENT: no acute distress, cooperative Head exam: PRESENT: normocephalic Eye exam: PRESENT: EOMI Mouth exam: PRESENT: moist, neck supple Neck exam: ABSENT: JVD Respiratory exam: PRESENT: rhonchi - few B/L, unlabored. ABSENT: wheezes Cardiovascular exam: PRESENT: irregular rhythm. ABSENT: gallop GI/Abdominal exam: PRESENT: normal bowel sounds, soft. ABSENT: distended, tenderness Extremities exam: PRESENT: other - Trace lower extremity edema Neurological exam: PRESENT: alert, awake, oriented to situation Psychiatric exam: PRESENT: normal mood Skin exam: PRESENT: dry, warm. ABSENT: cyanosis Results Laboratory Results: 11/15/16 06:18 11/15/16 06:18 11/14/16 11/15/16 11/15/16 21:30 06:18 06:18 WBC 5.2 RBC 4.26 Hgb 12.4 Hct 36.1 MCV 85 MCH 29.0 MCHC 34.2 RDW 12.7 Plt Count 169 Seg Neutrophils % 62.5 Lymphocytes % 24.0 Monocytes % 13.1 H Eosinophils % 0.1 Basophils % 0.3 Absolute Neutrophils 3.2 Absolute Lymphocytes 1.2 Absolute Monocytes 0.7 Absolute Eosinophils 0.0 Absolute Basophils 0.0 Sodium 133.7 L 134.2 L Potassium 3.5 L 3.2 L Chloride 98 99 Carbon Dioxide 24 25 Anion Gap 12 10 BUN 4 L 3 L Creatinine 0.55 0.57 Est GFR ( Amer) > 60 > 60 Est GFR (Non-Af Amer) > 60 > 60 Glucose 176 H 172 H Calcium 9.2 9.1 Magnesium 1.2 L* 11/12/16 11/12/16 11/12/16 02:15 02:15 10:20 Creatine Kinase 1175 H 1310 H CK-MB (CK-2) 2.27 Troponin I 0.419 11/12/16 10:20 Creatine Kinase CK-MB (CK-2) 2.18 Troponin I 0.301 Impressions: Head CT 11/11/16 17:07 IMPRESSION: No significant abnormalities on brain CT. Head MRI 11/12/16 08:23 IMPRESSION: MINIMAL MICROVASCULAR ISCHEMIC CHANGE. OTHERWISE NORMAL STUDY. Chest X-Ray 11/14/16 10:30 IMPRESSION: Few Elisa lines at the bases, question minimal interstitial edema Assessment & Plan - Time Time Spent with patient: 25-34 minutes - Plan Summary Plan Summary: Decrease intravenous fluids. Discontinue Norvasc. Continue Cardizem. Begin physical therapy. Continue antibiotics. Replace magnesium and potassium. Monitor electrolytes. Continue supportive care.
[2016-11-15] MEDS: MAGNESIUM SULFATE/D5W 1 GM/100 ML RTUPB IV SCH ×2 (15:00→16:41)
[2016-11-15] MEDS: POTASSIUM CHLORIDE 10 MEQ TABLET.SA PO SCH ×2 (16:41→18:45)
[2016-11-15] MEDS: HYDRALAZINE HCL INJ/PF 20 MG/1 ML SDV IV PRN (21:43)
[2016-11-15] MEDS: INSULIN LISPRO 100 UNIT/ML 3 ML VIAL SUBCUT PRN (22:14)
[2016-11-16] MEDS: NYSTATIN 500000 UNIT/5 ML UDCUP PO SCH ×4 (00:54→18:00)
[2016-11-16] MEDS: IPRATROPIUM/ALBUTEROL 0.5-2.5 MG/3 ML AMPUL NEB SCH ×4 (02:27→21:22)
[2016-11-16] MEDS: HEPARIN SOD (PORCINE) 5,000 UNIT/ML 1 ML SYRINGE SUBCUT SCH ×3 (06:03→21:25)
[2016-11-16 06:55] LABS: ANION GAP 10 (5-19); BLOOD UREA NITROGEN 4 mg/dL (7-20); CALCIUM 9.2 mg/dL (8.4-10.2); CARBON DIOXIDE 24 mmol/L (22-30); CHLORIDE 102 mmol/L (98-107); CREATININE RESULT 0.56 mg/dL (0.52-1.25); GLUCOSE 183 mg/dL (75-110); MAGNESIUM 1.5 mg/dL (1.6-2.3); POTASSIUM 3.8 mmol/L (3.6-5.0); SODIUM 136.1 mmol/L (137-145)
[2016-11-16] MEDS: LEVOFLOXACIN 750 MG TABLET PO SCH (10:15)
[2016-11-16] MEDS: CLOPIDOGREL BISULFATE 75 MG TABLET PO SCH (10:16)
[2016-11-16] MEDS: LISINOPRIL 10 MG TABLET PO SCH ×2 (10:16→22:05)
[2016-11-16] MEDS: DILTIAZEM HCL 120 MG CAP.SR.24H PO SCH ×2 (10:16→21:24)
[2016-11-16] MEDS: GUAIFENESIN 600 MG TABLET.SA PO SCH ×2 (10:25→21:23)
--- NOTE | 2016-11-16 14:21 | DRAGON STRESS TEST REPORT ---
INTRAVENOUS LEXISCAN CARDIOLITE STRESS TEST USING SINGLE PHOTON EMMISION COMPUTERIZED TOMOGRAPHIC. DATE OF PROCEDURE: November 16, 2016 INDICATION : Known CAD, shortness of breath, abnormal troponin I CARDIAC RISK FACTORS: Diabetes, hypertension, dyslipidemia, tobacco abuse, family history of heart disease RESTING EKG: Sinus rhythm without any baseline ST-T wave changes. STRESS EKG: No significant changes noted with LexiScan bolus REASON FOR TERMINATION: Protocol. PROCEDURE REPORT: Baseline heart rate 100 beats per minute with blood pressure of 150/73. Patient had no significant complaints. Heart rate at 2 minutes post bolus 127 with a blood pressure of 159/75. 3 minutes post bolus heart rate 118 with blood pressure of 156/69. No significant EKG changes were noted. Patient had no significant complaints during the procedure or postprocedure. CONCLUSIONS: Normal EKG and hemodynamic response to IV LexiScan. NUCLEAR DATA: At rest the patient was given 14.52 millicuries of technetium 99 sestamibi injected intravenously. As per protocol rest gated SPECT images were obtained. Subsequently the patient was given intravenous LexiScan at a dose of 0.4 mg in 5 mL intravenously, followed by flush with normal saline. Subsequently the stress dose of 40.3 millicuries of technetium 99 sestamibi was injected intravenously. As per protocol stress gated images were obtained. NUCLEAR INTERPRETATION: Both raw and processed data were used for interpretation. Visual, qualitative, computer-generated quantitative data was used. There was good myocardial uptake of technetium compound. Motion artifact and soft tissue attenuations were noted. Increased visceral uptake was noted. An area of severe fixed defect noted involving the LV apex. An small area of mild ischemia noted in the distal lateral wall. EKG gated imaging showed LV EF at 38 %, rest and stress gated EF similar visually. T. I D. ratio was 1.26. Lung heart ratio noted to be within normal limits 0.33. No significant extracardiac and abnormal radiotracer activities were noted. RV free wall uptake was noted to be WNL. IMPRESSION: Also refer to comments under nuclear interpretation. Also test results needs to be interpreted in the context of pretest probability. 1. Patient predominantly noted to have a severe fixed defect involving the left ventricular apex along with small area of distal lateral wall ischemia of mild severity. 2. There seems to be borderline transient ischemic dilatation but visually did not seem significant. 3. EKG gated imaging shows left ejection fraction of approximately 38% with apical akinesia. 4. Clinical correlation requested as worse disease or balanced ischemia could be missed. In approximately 10% of the cases Lexiscan may not cause adequate vasodilatory stress. RECOMMENDATIONS: Aggressive risk factor modification, medical therapy. Clinical correlation with echocardiogram derived ejection fraction. Inability to exercise by itself can lead to increased cardiovascular event risks. Consider cardiology consultation if clinically indicated. I AM AVAILABLE FOR CARDIOLOGY CONSULTATION AND FOLLOWUP IF REQUESTED BY PMD Zeenat Simmons M.D., ADILENE [employer] Operator poiser, Board certified in cardiovascular diseases, Nuclear cardiology, Echocardiography Cardiac CT and cardiac MRI Ph. [phone] [facility]ITAL[facility]
[2016-11-16] MEDS ORDERED: AMINOPHYLLINE INJ/PF 250 MG/10 ML SDV IV ONE (14:40)
[2016-11-16] MEDS ORDERED: REGADENOSON INJ 0.4 MG/5 ML DISP.SYRIN IV ONE (14:40)
[2016-11-16] MEDS: MAGNESIUM SULFATE/D5W 100 ML IV SCH ×2 (15:16→16:00)
--- NOTE | 2016-11-16 21:44 | EKG REPORT ---
SEVERITY:- ABNORMAL ECG - SINUS TACHYCARDIA BORDERLINE LEFT AXIS DEVIATION ABNRM R PROG, CONSIDER ASMI OR LEAD PLACEMENT MINIMAL ST DEPRESSION, ANTEROLATERAL LEADS : Confirmed by: Rashmi Damon MD 16-Nov-2016 21:44:16
[2016-11-16] MEDS ORDERED: ASPIRIN 81 MG TABLET, CHEWABLE PO SCH (22:00)
[2016-11-16] MEDS ORDERED: ATORVASTATIN CALCIUM 80 MG TABLET PO SCH (22:00)
[2016-11-16] MEDS: INSULIN LISPRO 100 UNIT/ML 3 ML VIAL SUBCUT PRN (22:06)
[2016-11-17] MEDS: NYSTATIN 500000 UNIT/5 ML UDCUP PO SCH ×4 (00:21→17:15)
[2016-11-17] MEDS: IPRATROPIUM/ALBUTEROL 0.5-2.5 MG/3 ML AMPUL NEB SCH ×3 (02:26→14:19)
[2016-11-17] MEDS: HEPARIN SOD (PORCINE) 5,000 UNIT/ML 1 ML SYRINGE SUBCUT SCH ×2 (05:49→16:39)
[2016-11-17] MEDS: INSULIN LISPRO 100 UNIT/ML 3 ML VIAL SUBCUT PRN ×3 (08:58→17:17)
[2016-11-17] MEDS: DILTIAZEM HCL 120 MG CAP.SR.24H PO SCH (09:41)
[2016-11-17] MEDS: CLOPIDOGREL BISULFATE 75 MG TABLET PO SCH (09:41)
[2016-11-17] MEDS: LISINOPRIL 10 MG TABLET PO SCH (09:41)
[2016-11-17] MEDS: GUAIFENESIN 600 MG TABLET.SA PO SCH (09:41)
[2016-11-17] MEDS: LEVOFLOXACIN 750 MG TABLET PO SCH (09:42)
[2016-11-17] MEDS ORDERED: ISOSORBIDE MONONITRATE 30 MG TAB.ER.24H PO SCH (10:00)
[2016-11-17] MEDS ORDERED: METOPROLOL SUCCINATE 25 MG TAB.SR.24H PO ONE (10:30)
--- NOTE | 2016-11-17 16:15 | PDOC PROGRESS REPORT ---
Subjective Progress Note for:: 11/16/16 Subjective:: Feeling better but generally weak. Denies chills or fever or diarrhea. No nausea or vomiting or chest pain. Shortness of breath is much better. Denies any wheezing. Patient refusing to go to subacute rehabilitation. Patient had a stress test that was abnormal. Wanting to go home and recover from COPD and infection and have cardiology follow-up on an outpatient basis to decide for cardiac catheterization. Physical Exam Vital Signs: Temp Pulse Resp BP Pulse Ox 98.1 F 78 20 141/63 H 93 11/17/16 15:13 11/17/16 15:13 11/17/16 15:13 11/17/16 15:13 11/17/16 15:13 Intake & Output 11/16/16 11/17/16 11/18/16 06:59 06:59 06:59 Intake Total 3089 1488 591 Output Total 602 800 Balance 2487 688 591 Weight 87.5 kg 87.9 kg General appearance: PRESENT: no acute distress, cooperative Head exam: PRESENT: normocephalic Eye exam: PRESENT: EOMI, PERRLA Mouth exam: PRESENT: moist, neck supple Neck exam: ABSENT: JVD Respiratory exam: PRESENT: clear to auscultation [place]. ABSENT: rhonchi, wheezes Cardiovascular exam: PRESENT: irregular rhythm. ABSENT: gallop GI/Abdominal exam: PRESENT: normal bowel sounds, soft. ABSENT: distended, tenderness Extremities exam: PRESENT: +1 edema Neurological exam: PRESENT: alert, awake, oriented to situation Skin exam: PRESENT: dry, warm. ABSENT: cyanosis Results Laboratory Results: 11/15/16 06:18 11/16/16 05:52 11/17/16 05:33 Magnesium 1.6 11/12/16 11/12/16 11/12/16 02:15 02:15 10:20 Creatine Kinase 1175 H 1310 H CK-MB (CK-2) 2.27 Troponin I 0.419 11/12/16 10:20 Creatine Kinase CK-MB (CK-2) 2.18 Troponin I 0.301 Impressions: Head CT 11/11/16 17:07 IMPRESSION: No significant abnormalities on brain CT. Head MRI 11/12/16 08:23 IMPRESSION: MINIMAL MICROVASCULAR ISCHEMIC CHANGE. OTHERWISE NORMAL STUDY. Chest X-Ray 11/14/16 10:30 IMPRESSION: Few Elisa lines at the bases, question minimal interstitial edema Assessment & Plan - Diagnosis (1) Pneumonia Qualifiers: Pneumonia type: due to unspecified organism Laterality: left Lung location: lower lobe of lung Qualified Code(s): J18.1 - Lobar pneumonia, unspecified organism Is this a current diagnosis for this admission?: Yes (2) COPD exacerbation Is this a current diagnosis for this admission?: Yes (3) UTI (urinary tract infection) Qualifiers: Urinary tract infection type: site unspecified Hematuria presence: without hematuria Qualified Code(s): N39.0 - Urinary tract infection, site not specified Is this a current diagnosis for this admission?: Yes (4) Multifocal atrial tachycardia Is this a current diagnosis for this admission?: Yes (5) Diabetes Qualifiers: Diabetes mellitus type: type 2 Diabetes mellitus complication status: with unspecified complications Is this a current diagnosis for this admission?: Yes (6) Hypertension Qualifiers: Hypertension type: essential hypertension Qualified Code(s): I10 - Essential (primary) hypertension Is this a current diagnosis for this admission?: Yes (7) Depression Qualifiers: Depression Type: unspecified Qualified Code(s): F32.9 - Major depressive disorder, single episode, unspecified Is this a current diagnosis for this admission?: Yes - Time Time Spent with patient: 15-24 minutes - Plan Summary Plan Summary: Case discussed with patient and family in length regarding abnormal stress test and cardiac catheterization. Patient and family opted for outpatient follow-up with cardiology and decide later, after recovering from respiratory infection and condition. Patient denies any chest pain at all. We will continue current medications. Put the patient on aspirin and nitrates. The patient likewise on Lipitor. Case discussed with cardiology service.
--- NOTE | 2016-11-17 16:56 | PDOC DISCHARGE SUMMARY ---
General - Admit/Disc Date/PCP Admission Date/Primary Care Provider: 11/11/16 19:28 KP CARSON Discharge Date: 11/17/16 - Discharge Diagnosis (1) Pneumonia Is this a current diagnosis for this admission?: Yes (2) COPD exacerbation Is this a current diagnosis for this admission?: Yes (3) UTI (urinary tract infection) Is this a current diagnosis for this admission?: Yes (4) Multifocal atrial tachycardia Is this a current diagnosis for this admission?: Yes (5) Diabetes Is this a current diagnosis for this admission?: Yes (6) Hypertension Is this a current diagnosis for this admission?: Yes (7) Depression Is this a current diagnosis for this admission?: Yes - Additional Information Resuscitation Status: Full Code Discharge Diet: Cardiac - low-fat low-salt, Diabetic - No concentrated sweets Discharge Activity: Activity As Tolerated, Balance Activity w/Rest, Slowly Increase Activity Home Medications: Aspirin [Aspirin EC] 81 mg PO DAILY 11/11/16 Clopidogrel Bisulfate [Clopidogrel] 75 mg PO DAILY 11/11/16 Fluticasone/Salmeterol [Advair HFA 230-21 mcg Inhaler] 2 puff IH DAILY 11/11/16 Lisinopril/Hydrochlorothiazide [Lisinopril-Hctz 20-12.5 mg Tab] 1 tab PO Q12 Metoprolol Succinate [Toprol XL 100 mg Tablet] 100 mg PO DAILY 11/11/16 Nitroglycerin [Nitrostat] 0.3 mg SL PRN PRN 11/11/16 Omeprazole 20 mg PO DAILY 11/11/16 Oxybutynin Chloride [Ditropan 5 mg Tablet] 5 mg PO Q12 11/11/16 Sitagliptin Phos/Metformin HCl [Janumet 50-1,000 mg Tablet] 1 tab PO BID Tramadol HCl/Acetaminophen [Tramadol-Acetaminophn 37.5-325] 2 tab PO Q8 Atorvastatin Calcium [Lipitor 80 mg Tablet] 80 mg PO QHS #30 tablet 11/17/16 Diltiazem HCl [Cardizem Cd 120 mg Capsule] 120 mg PO Q12 #60 cap.sr.24h Ipratropium/Albuterol Sulfate [Duoneb 3 ml Ampul] 3 ml NEB RTQ6 PRN #60 vial.neb 11/17/16 Isosorbide Mononitrate [Imdur 30 mg Tablet.er] 30 mg PO DAILY #30 tab.er.24h Levofloxacin [Levaquin 750 mg Tablet] 750 mg PO DAILY #7 tablet 11/17/16 History of Present Illness Patient complains of: Shortness of breath History of Present Illness: THA VERNON is a 71 year old female with a history of hypertension and diabetes as well as COPD presents to the hospital several days of coughing, shortness of breath, with associated fever and purulent expectoration. Chest x- ray revealed findings suggestive of pneumonia and pulmonary vascular congestion. The patient was likewise found to have tachycardia we irregularly irregular heart rhythm. The patient was then referred for admission. For details please refer to history and physical examination performed by the admitting physician. Hospital Course Hospital Course: The patient was admitted to [facility]. The patient was started on intravenous antibiotics as well as bronchodilators. Cardiology was consulted for the atrial tachycardia. A diagnosis of multiple atrial tachycardia was made and the patient was started on Cardizem drip. Blood cultures were negative. Urine culture grew Klebsiella and Escherichia coli. Serial cardiac enzymes were obtained and they were abnormal and attributed by cardiology service due to COPD exacerbation and pneumonia. The patient was placed on DVT prophylaxis. Patient was continued on her antiplatelet therapy. Eventually a stress test was performed after the patient's overall condition improved. Stress test revealed some reversible ischemia and cardiology recommended medical management at this time and considering cardiac catheterization on an outpatient basis. She was began on scheduled nitrates , continued on aspirin , and Lipitor. Patient and family were all agreeable with the plan to recover from the infection and COPD first. The patient continues to improve. She was placed on beta sekou as well for heart rate control. Her heart rate improved in the 80s to 110 and remained in sinus. Tachycardia may all be related to her debility as well as bronchodilators. Physical therapy was instituted however the patient refused to go to subacute rehabilitation. Home health therefore was consulted for home physical therapy. She was weaned from oxygen and her room air oxygenation was greater than 90%. Overall the patient improved. Other workups include head CT and MRI of the brain for her confusion which did not reveal any acute stroke. Eventually she improved in terms of her confusion with time. Her electrolytes were monitored during the course and will replaced accordingly. The rest of the hospital stay is unremarkable. She was eventually discharged home improved with above instructions. Physical Exam Vital Signs: Temp Pulse Resp BP Pulse Ox 98.1 F 78 20 141/63 H 93 11/17/16 15:13 11/17/16 15:13 11/17/16 15:13 11/17/16 15:13 11/17/16 15:13 Intake & Output 11/16/16 11/17/16 11/18/16 06:59 06:59 06:59 Intake Total 3089 1488 591 Output Total 602 800 Balance 2487 688 591 Weight 87.5 kg 87.9 kg General appearance: PRESENT: no acute distress, cooperative Head exam: PRESENT: normocephalic Eye exam: PRESENT: EOMI Mouth exam: PRESENT: moist, neck supple Neck exam: ABSENT: JVD Respiratory exam: PRESENT: clear to auscultation [place]. ABSENT: rhonchi, wheezes Cardiovascular exam: PRESENT: irregular rhythm. ABSENT: gallop GI/Abdominal exam: PRESENT: soft. ABSENT: distended, tenderness Extremities exam: PRESENT: +1 edema - Bilateral Neurological exam: PRESENT: alert, awake, oriented to situation Skin exam: PRESENT: cyanosis. ABSENT: dry, warm Results Laboratory Results: 11/15/16 06:18 11/16/16 05:52 11/17/16 05:33 Magnesium 1.6 11/12/16 11/12/16 11/12/16 02:15 02:15 10:20 Creatine Kinase 1175 H 1310 H CK-MB (CK-2) 2.27 Troponin I 0.419 11/12/16 10:20 Creatine Kinase CK-MB (CK-2) 2.18 Troponin I 0.301 Impressions: Head CT 11/11/16 17:07 IMPRESSION: No significant abnormalities on brain CT. Head MRI 11/12/16 08:23 IMPRESSION: MINIMAL MICROVASCULAR ISCHEMIC CHANGE. OTHERWISE NORMAL STUDY. Chest X-Ray 11/14/16 10:30 IMPRESSION: Few Elisa lines at the bases, question minimal interstitial edema Qualifiers [facility] BEING DISCHARGED WITH ANY OF THE FOLLOWING DIAGNOSIS?: No Plan Discharge Plan: Follow-up with primary care physician in one week. Follow-up with cardiology Dr. Simmons in 1-2 weeks. Time Spent: Less than 30 Minutes
[2016-11-17 17:41] VITALS: BP 176/79
--- NOTE | 2016-11-17 19:39 | PDOC PROGRESS REPORT ---
Subjective Progress Note for:: 11/16/16 Subjective:: Patient seems to be doing better with gradual improvement. Pt is denying any chest arm or neck discomfort. Patient denying any PND, orthopnea. Patient denied any sustained palpitations, dizziness, syncope, near syncope. Patient denying any fever chills. Patient denying any other significant discomfort. Patient is maintaining sinus rhythm. Frequent APCs are noted Review of systems: Rest review of systems negative. Medications: Medications have been reviewed. Physical Exam Vital Signs: Temp Pulse Resp BP Pulse Ox 98.3 F 92 24 H 153/65 H 92 11/16/16 07:10 11/16/16 08:41 11/16/16 08:41 11/16/16 07:10 11/16/16 08:41 Intake & Output 11/15/16 11/16/16 11/17/16 06:59 06:59 06:59 Intake Total 2716 3089 Output Total 602 Balance 2716 2487 Weight 91 kg 87.5 kg Exam: GENERAL: well-nourished and in no acute distress. Alert and oriented x3 HEAD: Atraumatic, normocephalic. EYES: Pupils equal round and reactive to light, extraocular movements intact, sclera anicteric, conjunctiva are normal. ENT: TMs normal, nares patent, oropharynx clear without exudates. Moist mucous membranes. No oral ulcerations or bleeding gums noted NECK: supple without lymphadenopathy. Trachea is central. No cervical or axillary lymphadenopathy noted. Carotids are 2+, JVD WNL LUNGS: Respiration seems nonlabored, no significant accessory muscle action noted. Breath sounds clear to auscultation bilaterally and equal. No wheezes rales or rhonchi. No significant dullness noted on percussion. CHEST: Palpation of the chest wall shows no significant chest wall tenderness or abnormalities. HEART: [place] [employer], No PSH, 1/6 RONNIE aortic area, 1/6 riley systolic murmur mitral area, no rubs, no gallops. ABDOMEN: Soft, no significant tenderness appreciated, normoactive bowel sounds. No guarding, no rebound. No rigidity noted . No masses appreciated. EXTREMITIES: Pedal pulses are 1-2+, no calf tenderness noted. No clubbing or cyanosis.trace to 1+ pedal edema noted NEUROLOGICAL: Focused neurological exam showed no significant neurologic deficit. Normal speech, no focal weakness appreciated. PSYCH: Normal mood, normal affect. Judgment and insight within normal limits. SKIN: No significant ecchymosis, rash, ulcerations or signs of pruritus noted. MUSCULOSKELETAL EXAM: No significant joint swelling noted. Results Laboratory Results: 11/15/16 06:18 11/16/16 05:52 11/16/16 05:52 Sodium 136.1 L Potassium 3.8 Chloride 102 Carbon Dioxide 24 Anion Gap 10 BUN 4 L Creatinine 0.56 Est GFR ( Amer) > 60 Est GFR (Non-Af Amer) > 60 Glucose 183 H Calcium 9.2 Magnesium 1.5 L 11/12/16 11/12/16 11/12/16 02:15 02:15 10:20 Creatine Kinase 1175 H 1310 H CK-MB (CK-2) 2.27 Troponin I 0.419 11/12/16 10:20 Creatine Kinase CK-MB (CK-2) 2.18 Troponin I 0.301 Impressions: Head CT 11/11/16 17:07 IMPRESSION: No significant abnormalities on brain CT. Head MRI 11/12/16 08:23 IMPRESSION: MINIMAL MICROVASCULAR ISCHEMIC CHANGE. OTHERWISE NORMAL STUDY. Chest X-Ray 11/14/16 10:30 IMPRESSION: Few Elisa lines at the bases, question minimal interstitial edema Assessment & Plan - Diagnosis (1) Multifocal atrial tachycardia Is this a current diagnosis for this admission?: Yes (2) Hypokalemia Is this a current diagnosis for this admission?: Yes (3) Hypomagnesemia Is this a current diagnosis for this admission?: Yes (4) Pneumonia Qualifiers: Pneumonia type: due to unspecified organism Laterality: left Lung location: lower lobe of lung Qualified Code(s): J18.1 - Lobar pneumonia, unspecified organism Is this a current diagnosis for this admission?: Yes (5) Hypertension Qualifiers: Hypertension type: essential hypertension Qualified Code(s): I10 - Essential (primary) hypertension Is this a current diagnosis for this admission?: Yes (6) Diabetes Qualifiers: Diabetes mellitus type: type 2 Diabetes mellitus complication status: with unspecified complications Is this a current diagnosis for this admission?: Yes (7) Elevated troponin I level Is this a current diagnosis for this admission?: Yes - Notes Notes: Elevated troponin I was evaluated with a nuclear stress test. This showed mainly a severe fixed defect in the apex of the left ventricle with small area of ischemia in the distal lateral wall. This was discussed with hospitalist. Discussed treatment options which include medical therapy versus cardiac catheterization guided therapy. Patient chart reviewed. It seems patient was admitted with fever and signs of bronchitis versus pneumonia. Will discuss this options with patient's family member and decide if final plan. Hypokalemia: Improved Hypomagnesemia: Resolved. Pneumonia: Gradually improving. Hypertension: Blood pressure under reasonable control. Diabetes: Under better control. More than 50% of the time spent coordinating care, discussing management plans with involved caregivers. Management plans discussed with involved personnels. Medical decision making was of moderate complexity. Patient was seen multiple times. Patient was seen earlier in the morning when nuclear stress test procedure, risks benefits were discussed. Patient was also seen in the stress lab and then after the stress results were available when prolonged discussion was went into management plans. Total time exceeds 40 minutes. - Time Time with patient: Greater than 35 minutes - CODE STATUS was discussed, patient remains full code. Surrogate decision-maker unchanged. Multiple medical problems were addressed. Medications reviewed and adjusted accordingly: Yes
--- NOTE | 2016-11-17 19:41 | PDOC PROGRESS REPORT ---
Subjective Progress Note for:: 11/17/16 Subjective:: Patient seems to be doing better with gradual improvement. Pt is denying any chest arm or neck discomfort. Patient denying any PND, orthopnea. Patient denied any sustained palpitations, dizziness, syncope, near syncope. Patient denying any fever chills. Patient denying any other significant discomfort. Patient has not ambulated much. She was noted to be tachycardic this morning therefore patient was placed on metoprolol succinate 12.5 mg by mouth twice a day. Patient denied any chest pain. Discussed stress test result again with the patient. We discussed cardiac catheterization with the patient. Risk benefits discussed. Patient declined to pursue this option but favors medical therapy at this point. Patient more willing to go to a rehabilitation center and get her strength back. Patient advised close follow-up. Medical regimen was optimized. Patient is maintaining sinus rhythm. Frequent APCs are noted Review of systems: Rest review of systems negative. Medications: Medications have been reviewed. Physical Exam Vital Signs: Temp Pulse Resp BP Pulse Ox 98.1 F 78 20 176/79 H 93 11/17/16 17:39 11/17/16 17:39 11/17/16 17:39 11/17/16 17:39 11/17/16 17:39 Intake & Output 11/16/16 11/17/16 11/18/16 06:59 06:59 06:59 Intake Total 3089 1488 591 Output Total 602 800 Balance 2487 688 591 Weight 87.5 kg 87.9 kg Exam: GENERAL: well-nourished and in no acute distress. Alert and oriented x3 HEAD: Atraumatic, normocephalic. EYES: Pupils equal round and reactive to light, extraocular movements intact, sclera anicteric, conjunctiva are normal. ENT: TMs normal, nares patent, oropharynx clear without exudates. Moist mucous membranes. No oral ulcerations or bleeding gums noted NECK: supple without lymphadenopathy. Trachea is central. No cervical or axillary lymphadenopathy noted. Carotids are 2+, JVD WNL LUNGS: Respiration seems nonlabored, no significant accessory muscle action noted. Breath sounds clear to auscultation bilaterally and equal. No wheezes rales or rhonchi. No significant dullness noted on percussion. CHEST: Palpation of the chest wall shows no significant chest wall tenderness or abnormalities. HEART: [place] [employer], No PSH, 1/6 RONNIE aortic area, 1/6 riley systolic murmur mitral area, no rubs, no gallops. ABDOMEN: Soft, no significant tenderness appreciated, normoactive bowel sounds. No guarding, no rebound. No rigidity noted . No masses appreciated. EXTREMITIES: Pedal pulses are 1-2+, no calf tenderness noted. No clubbing or cyanosis.trace to 1+ pedal edema noted NEUROLOGICAL: Focused neurological exam showed no significant neurologic deficit. Normal speech, no focal weakness appreciated. PSYCH: Normal mood, normal affect. Judgment and insight within normal limits. SKIN: No significant ecchymosis, rash, ulcerations or signs of pruritus noted. MUSCULOSKELETAL EXAM: No significant joint swelling noted. Results Laboratory Results: 11/15/16 06:18 11/16/16 05:52 11/17/16 05:33 Magnesium 1.6 11/12/16 11/12/16 11/12/16 02:15 02:15 10:20 Creatine Kinase 1175 H 1310 H CK-MB (CK-2) 2.27 Troponin I 0.419 11/12/16 10:20 Creatine Kinase CK-MB (CK-2) 2.18 Troponin I 0.301 Impressions: Head CT 11/11/16 17:07 IMPRESSION: No significant abnormalities on brain CT. Head MRI 11/12/16 08:23 IMPRESSION: MINIMAL MICROVASCULAR ISCHEMIC CHANGE. OTHERWISE NORMAL STUDY. Chest X-Ray 11/14/16 10:30 IMPRESSION: Few Elisa lines at the bases, question minimal interstitial edema Assessment & Plan - Diagnosis (1) Multifocal atrial tachycardia Is this a current diagnosis for this admission?: Yes (2) Hypokalemia Is this a current diagnosis for this admission?: Yes (3) Hypomagnesemia Is this a current diagnosis for this admission?: Yes (4) Pneumonia Qualifiers: Pneumonia type: due to unspecified organism Laterality: left Lung location: lower lobe of lung Qualified Code(s): J18.1 - Lobar pneumonia, unspecified organism Is this a current diagnosis for this admission?: Yes (5) Hypertension Qualifiers: Hypertension type: essential hypertension Qualified Code(s): I10 - Essential (primary) hypertension Is this a current diagnosis for this admission?: Yes (6) Diabetes Qualifiers: Diabetes mellitus type: type 2 Diabetes mellitus complication status: with unspecified complications Is this a current diagnosis for this admission?: Yes (7) Elevated troponin I level Is this a current diagnosis for this admission?: Yes - Notes Notes: Elevated troponin I was evaluated with a nuclear stress test yesterday. This showed mainly a severe fixed defect in the apex of the left ventricle with small area of ischemia in the distal lateral wall. This was discussed with hospitalist. Discussed treatment options which include medical therapy versus cardiac catheterization guided therapy. Patient was given both options. Currently she claims that she would like to continue with medical therapy. This is not an unreasonable option since patient was not admitted with chest pain or angina type symptoms but was noted to have fever and shortness of breath. Hypokalemia: Improved Hypomagnesemia: Resolved. Pneumonia: Gradually improving. Hypertension: Blood pressure under reasonable control. Diabetes: Under better control. Multifocal atrial tachycardia: Patient this morning was noted to have elevated heart rate on minimal exertion. She was however asymptomatic. Patient was therefore placed on beta sekou therapy. More than 50% of the time spent coordinating care, discussing management plans with involved caregivers. Management plans discussed with involved personnels. Medical decision making was of moderate complexity. Approximate time involved including discussion was 35 minutes. These included review of cardiac evaluations echocardiogram, nuclear stress test results. - Time Time with patient: Greater than 35 minutes - CODE STATUS was discussed, patient remains full code. Surrogate decision-maker unchanged. Multiple medical problems were addressed.More than 50% of the time spent coordinating care, discussing management plans with involved caregivers. Management plans discussed with involved personnels. Medical decision making was of moderate complexity. Medications reviewed and adjusted accordingly: Yes
[2016-11-17] MEDS ORDERED: METOPROLOL SUCCINATE 25 MG TAB.SR.24H PO SCH (22:00)
[2016-11-18 11:50] LABS: ALDOSTERONE <1.0 ng/dL (0.0-30.0)
== END 2016-11-17 19:23 | disposition home health service (06) | DRG 194 ==
LOC: ER 16:42 → EH 19:28 → 3S 23:10
PROVIDERS: ADMIT Internal Medicine; ATTEND Internal Medicine
DX: J18.9 Pneumonia, unspecified organism (principal); E87.1 Hypo-osmolality and hyponatremia; J44.1 Chronic obstructive pulmonary disease with (acute) exacerbation; I47.1 Supraventricular tachycardia; N39.0 Urinary tract infection, site not specified; E86.0 Dehydration; E83.42 Hypomagnesemia; E87.6 Hypokalemia; E78.5 Hyperlipidemia, unspecified; I10 Essential (primary) hypertension; E11.9 Type 2 diabetes mellitus without complications; R47.81 Slurred speech; F32.9 Major depressive disorder, single episode, unspecified; F17.210 Nicotine dependence, cigarettes, uncomplicated; Z79.84 Long term (current) use of oral hypoglycemic drugs; Z79.82 Long term (current) use of aspirin; Z79.899 Other long term (current) drug therapy
CPT/HCPCS: 36415; 70450; 70551; 71010; 71020; 78452; 80048; 80053; 81001; 82088; 82550; 82553; 82962; 83036; 83690; 83735; 83880; 84244; 84443; 84484; 85025; 85610; 85730; 87040; 87086; 87088; 87186; 93005; 93010; 93017; 93306; 94799; 99285; A9500; G8978-GP; G8979-GP; J0280; J0360; J0456; J0696; J1644; J1815; J1956; J2785; J3475; J3480; J3490; J7030; J7620; Q9969

== ENCOUNTER → 2017-02-21 | Outpatient (CLI) | payer MEDICARE, MEDICAID | LOC: OD 15:17 | PROVIDERS: ATTEND Physician Assistant Medical | DX: R06.02 Shortness of breath (principal) | CPT/HCPCS: 71020 ==

== ENCOUNTER → 2017-05-01 | Outpatient (CLI) | payer MEDICARE, MEDICAID | LOC: OD 12:25 | PROVIDERS: ATTEND Physician Assistant Medical | DX: Z53.9 Procedure and treatment not carried out, unspecified reason (principal) ==

== ENCOUNTER 2017-10-02 21:30 | Emergency (ER) | payer MEDICARE, MEDICAID ==
[2017-10-02] MEDS ORDERED: NORMAL SALINE 500 ML IV ONE (23:56)
[2017-10-03 01:17] LABS: ABSOLUTE BASOPHILS # (AUTO) 0.1 10^3/uL (0.0-0.2); ABSOLUTE EOSINOPHILS # (AUTO) 0.1 10^3/uL (0.0-0.6); ABSOLUTE LYMPHOCYTES (AUTO) 1.9 10^3/uL (0.5-4.7); ABSOLUTE MONOCYTES (AUTO) 0.7 10^3/uL (0.1-1.4); ABSOLUTE NEUT (AUTO) 6.3 10^3/uL (1.7-8.2); BASOPHILS % (AUTO) 0.6 % (0-2); EOSINOPHILS % (AUTO) 1.3 % (0-6); HEMATOCRIT 31.2 % (36.0-47.0); HEMOGLOBIN 10.7 g/dL (12.0-15.5); HGB HCT DIFFERENCE 0.9; MEAN CORPUSCULAR HEMOGLOBIN 29.3 pg (27.0-33.4); MEAN CORPUSCULAR HGB CONC 34.4 g/dL (32.0-36.0); MEAN CORPUSCULAR VOLUME 85 fl (80-97); RED BLOOD COUNT 3.67 10^6/uL (3.72-5.28); RED CELL DISTRIBUTION WIDTH 13.8 % (11.5-14.0); SEGMENTED NEUTROPHILS % (AUTO) 69.1 % (42-78); WHITE BLOOD COUNT 9.1 10^3/uL (4.0-10.5)
[2017-10-03 01:37] LABS: ALANINE AMINOTRANSFERASE 37 U/L (9-52); ALBUMIN 3.4 g/dL (3.5-5.0); ALKALINE PHOSPHATASE 67 U/L (38-126); ANION GAP 12 (5-19); ASPARTATE AMINO TRANSFERASE 28 U/L (14-36); BILIRUBIN,DIRECT 0.4 mg/dL (0.0-0.4); BILIRUBIN,TOTAL 0.4 mg/dL (0.2-1.3); BLOOD UREA NITROGEN 14 mg/dL (7-20); CALCIUM 8.7 mg/dL (8.4-10.2); CARBON DIOXIDE 28 mmol/L (22-30); CHLORIDE 86 mmol/L (98-107); CREATININE RESULT 1.16 mg/dL (0.52-1.25); GLUCOSE 89 mg/dL (75-110); LIPASE 30.7 U/L (23-300); SODIUM 126.3 mmol/L (137-145); TOTAL PROTEIN 6.6 g/dL (6.3-8.2)
[2017-10-03 01:47] LABS: MAGNESIUM 0.9 mg/dL (1.6-2.3); POTASSIUM 2.9 mmol/L (3.6-5.0)
[2017-10-03] MEDS ORDERED: POTASSI CL 20 MEQ/50 ML RIDER 20 MEQ/50 ML RTUPB IV ONE (01:49)
[2017-10-03] MEDS ORDERED: POTASSIUM CHLORIDE 10 MEQ TABLET.SA PO ONE (01:50)
[2017-10-03 02:04] LABS: APPEARANCE,URINE SLIGHTLY-CLOUDY; BILIRUBIN,URINE NEGATIVE (NEGATIVE); GLUCOSE, URINE NEGATIVE (NEGATIVE); KETONES,URINE NEGATIVE (NEGATIVE); LEUKOCYTE ESTERASE,URINE LARGE (NEGATIVE); NITRITE,URINE NEGATIVE (NEGATIVE); PROTEIN,URINE NEGATIVE (NEGATIVE); URINE SPECIFIC GRAVITY 1.009; UROBILINOGEN,URINE NEGATIVE mg/dL (<2.0)
--- NOTE | 2017-10-03 02:12 | RADIOLOGY REPORT (SQ) ---
EXAM DESCRIPTION: U/S ABDOMEN LTD W/DOPPLER CLINICAL HISTORY: RUQ gallbladder COMPARISON: None. TECHNIQUE: Real-time sonographic images of the right upper abdomen were obtained using a curved multihertz transducer. FINDINGS: The visualized portions of the pancreas are unremarkable. The visualized portions of the aorta and IVC are unremarkable. The liver has normal contour and echogenicity. Common bile duct measures 0.5 cm. Hepatopedal flow in the portal vein. The gallbladder has a normal appearance. No gallstones identified. No wall thickening or pericholecystic fluid. The right kidney measures 11.3 cm in length. Mild right hydronephrosis. IMPRESSION: 1. Mild right hydronephrosis. 2. No gallstones.
[2017-10-03] MEDS: MAGNESIUM SULFATE/D5W 1 GM/100 ML RTUPB IV SCH ×3 (02:50→04:50)
[2017-10-03] MEDS ORDERED: CEFTRIAXONE INJ 1000 MG VIAL IV ONE (02:54)
--- NOTE | 2017-10-03 03:11 | ER Document Report ---
ED General - General Chief Complaint: Vomiting Stated Complaint: VOMITING Time Seen by Provider: 10/02/17 23:46 Notes: Patient is a 72-year-old female who was sent here by the nurse practitioner Dr. Waters's office because her magnesium and potassium are low. She also apparently had elevated white blood cell count. Patient says that she has a history of chronic diarrhea. She said for the last 2 days she has felt more sick than usual has had some vomiting. She has had some right-sided abdominal pain is intermittent. She denies any fevers. She denies any blood in her stool but says that she has had some dysuria and symptoms of urinary tract infection. Patient does have a cardiac history. She denies any chest pain or shortness of breath at this time. She did have a colonoscopy and and endoscopy 2 weeks ago. These did not show any type of cancerous abnormalities. TRAVEL OUTSIDE OF THE [place] IN LAST 30 DAYS: No - Related Data Allergies/Adverse Reactions: No Known Allergies Allergy (Verified 10/02/17 21:32) Past Medical History - Social History Smoking Status: Unknown if Ever Smoked Frequency of alcohol use: None Drug Abuse: None Family History: CAD, COPD - Past Medical History Cardiac Medical History: Reports: Hx Hypertension Pulmonary Medical History: Reports: Hx COPD Endocrine Medical History: Reports: Hx Diabetes Mellitus Type 2 Psychiatric Medical History: Reports: Hx Depression Past Surgical History: Reports: Hx Hysterectomy - Immunizations Hx Diphtheria, Pertussis, Tetanus Vaccination: Yes Hx Pneumococcal Vaccination: 07/09/16 Review of Systems - Review of Systems Notes: My Normal Review Basic REVIEW OF SYSTEMS: CONSTITUTIONAL : Denies fever, chills, or sweats. Denies recent illness. EENT: Denies eye, ear, throat, or mouth pain or symptoms. Denies nasal or sinus congestion. CARDIOVASCULAR: Denies chest pain. RESPIRATORY: Denies cough, cold, or chest congestion. Denies shortness of breath, difficulty breathing, or wheezing. GASTROINTESTINAL: Denies abdominal pain. Vomiting 1. Chronic diarrhea. GENITOURINARY: Dysuria and urinary frequency. MUSCULOSKELETAL: Denies neck or back pain or joint pain or swelling. SKIN: Denies rash or skin lesions. NEUROLOGICAL: Denies altered mental status or loss of consciousness. Denies headache. Denies weakness or paralysis or loss of use of either side. Denies problems with gait or speech. Denies sensory or motor loss. ALL OTHER SYSTEMS REVIEWED AND NEGATIVE. Physical Exam - Vital signs Vitals: Temp Pulse Resp BP Pulse Ox 97.9 F 64 16 154/63 H 98 10/02/17 21:43 10/02/17 21:43 10/02/17 21:43 10/02/17 21:43 10/02/17 21:43 - Notes Notes: General Appearance: Well nourished, alert, cooperative, no acute distress, no obvious discomfort. Well-appearing. Vitals: reviewed, See vital signs table. Head: no swelling or tenderness to the head Eyes: PERRL, EOMI, Conjuctiva clear Mouth: No decreasd moisture Neck: Supple, no neck tenderness Lungs: No wheezing, No rales, No rhonci, No accessory muscle use, good air exchange bilaterally. Heart: Normal rate, Regular rythm, No murmur, no rub Abdomen: Normal BS, soft, No rigidity, No reproducible abdominal tenderness to palpation, No guarding, no rebound, no abdominal masses, no organomegaly Extremities: strength 5/5 in all extremities, good pulses in all extremities, no swelling or tenderness in the extremities, no edema. Skin: warm, dry, appropriate color, no rash Neuro: speech clear, oriented x 3, normal affect, responds appropriately to questions. Course - Re-evaluation Re-evalutation: 10/03/17 05:05 She does have urinary tract infection therefore give her Rocephin. Ultrasound with some hydronephrosis on the right side. Patient's symptoms really are not consistent with that kidney stone that she really has little to no pain whatsoever. I still obtain a CT scan to make sure there is no association with infection. CT scan did not show recurrent kidney stone. Patient says he feels well and is currently receiving potassium magnesium. Once the potassium and magnesium are finished patient will most likely will be able to be discharged home with antibiotic for her urinary tract infection. 10/03/17 06:51 Patient's electrolyte infusions are complete. She feels and looks much improved. I will discharge her home with antibiotics also nausea medicine as well as some supplemental potassium. She is to follow-up with her doctor on Monday for reevaluation and to have her magnesium and potassium levels rechecked. She is encouraged to return to ER immediately if she has fevers, recurrent vomiting, or feels unwell. Patient agrees with plan will be discharged home. Dictation of this chart was performed using voice recognition software; therefore, there may be some unintended grammatical errors. - Vital Signs Vital signs: Temp Pulse Resp BP Pulse Ox 97.9 F 62 17 155/57 H 99 10/02/17 21:43 10/03/17 06:37 10/03/17 06:37 10/03/17 06:37 10/03/17 06:37 - Laboratory Result Diagrams: 10/03/17 01:05 10/03/17 01:05 Laboratory results interpreted by me: 10/03/17 10/03/17 10/03/17 01:05 01:05 01:20 RBC 3.67 L Hgb 10.7 L Hct 31.2 L Sodium 126.3 L Potassium 2.9 L* Chloride 86 L Est GFR ( Amer) 56 L Est GFR (Non-Af Amer) 46 L Magnesium 0.9 L* Albumin 3.4 L Ur Leukocyte Esterase LARGE H - EKG Interpretation by Me Additional EKG results interpreted by me: 10/03/17 03:07 EKG is reviewed and interpreted by me. EKG shows normal sinus rhythm with a rate of [address] segment elevation or depression. No ischemic T-wave inversions. SD interval, QRS duration, QTc intervals are within normal range. Discharge - Discharge Clinical Impression: Hypokalemia, Hypomagnesemia UTI (urinary tract infection) Qualifiers: Urinary tract infection type: site unspecified Hematuria presence: without hematuria Qualified Code(s): N39.0 - Urinary tract infection, site not specified Condition: Good Disposition: HOME, SELF-CARE Additional Instructions: Your urinalysis did show evidence of a urinary tract infection. Your ultrasound showed a normal gallbladder but did show a small amount of back up of fluid in your kidney. This is chronic for some people, but also can be a sign of a kidney stone and therefore we performed a CT scan of you to rule out a kidney stone. There was no kidney stone on CT scan. You should still have a repeat ultrasound of your kidney in 1-2 weeks to make sure the fluid in your kidney remains the same. please take the antibiotic as prescribed. Please take a daily multivitamin. Please follow up with your doctor on Monday for reevaluation and recheck of you magnesium and potassium levels. Prescriptions: Cephalexin Monohydrate [Keflex 500 mg Capsule] 500 mg PO Q6H 5 Days capsule Ondansetron [Zofran Odt 4 mg Tablet] 1 tab PO Q4H PRN #10 tab.rapdis PRN Reason: For Nausea/Vomiting Potassium Chloride 20 meq PO DAILY #10 packet Referrals: FREDDY WATERS MD [Primary Care Provider] - 10/06/17
--- NOTE | 2017-10-03 04:51 | RADIOLOGY REPORT (SQ) ---
EXAM DESCRIPTION: CT ABDOMEN AND PELVIS WITHOUT CONTRAST CLINICAL HISTORY: Right upper and lower quadrant pain. Right hydronephrosis. COMPARISON: None Available. TECHNIQUE: CT of the abdomen and pelvis without IV contrast. FINDINGS: Abdomen: The liver has normal size and density. No calcified gallstones. The spleen, pancreas, and adrenal glands are unremarkable. Likely benign 1.4 cm exophytic hypodense structure arising from the interpolar left kidney. Mild right hydronephrosis and proximal hydroureter without obstructing ureteral calculi identified. No left-sided hydronephrosis. Nonobstructing superior pole right renal calculus. Aortoiliac atherosclerosis. IVC is unremarkable. No free intraperitoneal air. The stomach and duodenum have normal course. Pelvis: Prior hysterectomy. Urinary bladder is unremarkable. No free pelvic fluid or lymphadenopathy. No dilated loops of large or small bowel. Normal appendix. The visualized lung bases are clear. No destructive bone lesions identified. Mild degenerative spondylosis of the visualized thoracic and lumbar spine. DLP: 731.80 mGy-cm IMPRESSION: 1. Mild right hydroureter and hydronephrosis. No calculus identified. This may be related to recently passed calculus. 2. Punctate nonobstructing right renal calculus. This exam was performed according to our departmental dose-optimization program, which includes automated exposure control, adjustment of the mA and/or kV according to patient size and/or use of iterative reconstruction technique.
[2017-10-03] MEDS ORDERED: METOPROLOL TARTRATE PF/INJ 5 MG/5 ML SDV IV ONE (06:37)
[2017-10-03 07:10] VITALS: BP 146/55
--- NOTE | 2017-10-03 08:06 | EKG REPORT ---
SEVERITY:- OTHERWISE NORMAL ECG - SINUS RHYTHM ATRIAL PREMATURE COMPLEX : Confirmed by: Zeenat Simmons 03-Oct-2017 08:06:09
== END 2017-10-03 07:11 | disposition home or self-care (01) ==
LOC: ER 21:30
DX: E87.6 Hypokalemia (principal); E83.42 Hypomagnesemia; N39.0 Urinary tract infection, site not specified; R11.10 Vomiting, unspecified; I10 Essential (primary) hypertension; J44.9 Chronic obstructive pulmonary disease, unspecified; E11.9 Type 2 diabetes mellitus without complications; Z90.710 Acquired absence of both cervix and uterus
CPT/HCPCS: 93005; 99285; 36415; 87086; 83690; 83735; 85025; 87088; 80053; 81001; 87186; 76705; 93976; 76380; 93010; J3475; J0696; J3480; J7040; A9270

== ENCOUNTER → 2018-02-05 | Outpatient (CLI) | payer MEDICARE, MEDICAID ==
--- NOTE | 2018-02-05 08:20 | RADIOLOGY REPORT (SQ) ---
EXAM DESCRIPTION: CT HEAD WITHOUT COMPLETED DATE/TIME: 02/05/2018 7:53 am REASON FOR STUDY: REPEATED FALLS (R29.6) S09.93XA UNSPECIFIED INJURY OF FACE, INITIAL ENCOUNTER R29 .6 REPEATED FALLS COMPARISON: CT brain 11/11/2016 TECHNIQUE: Axial images acquired through the brain without intravenous contrast. Images reviewed wi th bone, brain and subdural windows. Additional sagittal and coronal reconstructions were generated. Images stored on PACS. All CT scanners at this facility use dose modulation, iterative reconstruction, and/or weight based d osing when appropriate to reduce radiation dose to as low as reasonably achievable (ALARA). [facility]: Dose Right [facility]: CareDose [facility]: Dose Right [facility]: Teradose 4D [facility]: [employer] RADIATION DOSE: CT Rad equipment meets quality standard of care and radiation dose reduction techniq ues were employed. CTDIvol: 48.6 mGy. DLP: 905 mGy-cm. mGy. LIMITATIONS: None. FINDINGS: VENTRICLES: Normal size and contour. CEREBRUM: No masses. No hemorrhage. No midline shift. No evidence for acute infarction. Normal gra y/white matter differentiation. No areas of low density in the white matter. CEREBELLUM: No masses. No hemorrhage. No alteration of density. No evidence for acute infarction. EXTRAAXIAL SPACES: No fluid collections. No masses. ORBITS AND GLOBE: No intra- or extraconal masses. Normal contour of globe without masses. CALVARIUM: No fracture. PARANASAL SINUSES: No fluid or mucosal thickening. SOFT TISSUES: No mass or hematoma. OTHER: No other significant finding. IMPRESSION: NORMAL BRAIN CT WITHOUT CONTRAST. EVIDENCE OF ACUTE STROKE: NO. COMMENT: Quality ID # [id number]: Final reports with documentation of one or more dose reduction techniques (e.g., Automated exposure control, adjustment of the mA and/or kV according to patient size, use of iterative reconstruction technique) TECHNICAL DOCUMENTATION: JOB ID: [id number] [email or web address]- All Rights Reserved Reading location - IP/workstation name: [email or web address]
== END ==
LOC: RAD 07:35
PROVIDERS: ATTEND Physician Assistant Medical
DX: S09.93XA Unspecified injury of face, initial encounter (principal); R29.6 Repeated falls; W19.XXXA Unspecified fall, initial encounter
CPT/HCPCS: 70450

== ENCOUNTER 2018-07-07 09:34 | Emergency (ER) | payer MEDICARE, MEDICAID ==
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
[2018-07-07 11:26] LABS: ABSOLUTE BASOPHILS # (AUTO) 0.1 10^3/uL (0.0-0.2); ABSOLUTE EOSINOPHILS # (AUTO) 0.1 10^3/uL (0.0-0.6); ABSOLUTE LYMPHOCYTES (AUTO) 0.9 10^3/uL (0.5-4.7); ABSOLUTE MONOCYTES (AUTO) 0.6 10^3/uL (0.1-1.4); ABSOLUTE NEUT (AUTO) 9.5 10^3/uL (1.7-8.2); BASOPHILS % (AUTO) 0.6 % (0-2); EOSINOPHILS % (AUTO) 1.1 % (0-6); HEMATOCRIT 39.5 % (36.0-47.0); HEMOGLOBIN 13.3 g/dL (12.0-15.5); LYMPHOCYTES % (AUTO) 7.8 % (13-45); MEAN CORPUSCULAR HEMOGLOBIN 27.7 pg (27.0-33.4); MEAN CORPUSCULAR HGB CONC 33.6 g/dL (32.0-36.0); MEAN CORPUSCULAR VOLUME 83 fl (80-97); MONOCYTES % (AUTO) 5.4 % (3-13); PLATELET COUNT 332 10^3/uL (150-450); RED BLOOD COUNT 4.79 10^6/uL (3.72-5.28); RED CELL DISTRIBUTION WIDTH 13.9 % (11.5-14.0); SEGMENTED NEUTROPHILS % (AUTO) 85.1 % (42-78); TOTAL CELLS COUNTED % (AUTO) 100 %; WHITE BLOOD COUNT 11.2 10^3/uL (4.0-10.5)
--- NOTE | 2018-07-07 11:27 | RADIOLOGY REPORT (SQ) ---
EXAM DESCRIPTION: CHEST SINGLE VIEW COMPLETED DATE/TIME: 07/07/2018 11:17 am REASON FOR STUDY: Syncope COMPARISON: 02/21/2017 EXAM PARAMETERS: NUMBER OF VIEWS: One view. TECHNIQUE: Single frontal radiographic view of the chest acquired. RADIATION DOSE: NA LIMITATIONS: None. FINDINGS: LUNGS AND PLEURA: No opacities, masses or pneumothorax. No pleural effusion. MEDIASTINUM AND HILAR STRUCTURES: No masses. Contour normal. HEART AND VASCULAR STRUCTURES: Heart normal in size. Normal vasculature. BONES: No acute findings. HARDWARE: None in the chest. OTHER: No other significant finding. IMPRESSION: NO ACUTE RADIOGRAPHIC FINDING IN THE CHEST. TECHNICAL DOCUMENTATION: JOB ID: [id number] [place]-72 2010 [employer]- All Rights Reserved Reading location - IP/workstation name: [email or web address]
--- NOTE | 2018-07-07 11:30 | RADIOLOGY REPORT (SQ) ---
EXAM DESCRIPTION: CT HEAD WITHOUT COMPLETED DATE/TIME: 07/07/2018 11:20 am REASON FOR STUDY: Syncope COMPARISON: 02/05/2018 TECHNIQUE: Axial images acquired through the brain without intravenous contrast. Images reviewed wi th bone, brain and subdural windows. Images stored on PACS. All CT scanners at this facility use dose modulation, iterative reconstruction, and/or weight based d osing when appropriate to reduce radiation dose to as low as reasonably achievable (ALARA). [facility]: Dose Right [facility]: CareDose [facility]: Dose Right [facility]: Teradose 4D [facility]: [employer] Technologies RADIATION DOSE: CT Rad equipment meets quality standard of care and radiation dose reduction techniq ues were employed. CTDIvol: 53.2 mGy. DLP: 964 mGy-cm. mGy. LIMITATIONS: None. FINDINGS: VENTRICLES: Normal size and contour. CEREBRUM: No masses. No hemorrhage. No midline shift. No evidence for acute infarction. Normal gra y/white matter differentiation. No areas of low density in the white matter. CEREBELLUM: No masses. No hemorrhage. No alteration of density. No evidence for acute infarction. EXTRAAXIAL SPACES: No fluid collections. No masses. ORBITS AND GLOBE: No intra- or extraconal masses. Normal contour of globe without masses. CALVARIUM: No fracture. PARANASAL SINUSES: No fluid or mucosal thickening. SOFT TISSUES: No mass or hematoma. OTHER: No other significant finding. IMPRESSION: No acute intracranial findings. EVIDENCE OF ACUTE STROKE: NO. COMMENT: Quality ID # [id number]: Final reports with documentation of one or more dose reduction techniques (e.g., Automated exposure control, adjustment of the mA and/or kV according to patient size, use of iterative reconstruction technique) TECHNICAL DOCUMENTATION: JOB ID: [id number] [place]-72 2010 [employer]- All Rights Reserved Reading location - IP/workstation name: [email or web address]
--- NOTE | 2018-07-07 11:30 | ER Document Report ---
ED Syncope and Near Syncope - General Chief Complaint: Passed Out Prior to Arrival Stated Complaint: SYNCOPLE EPISODE Time Seen by Provider: 07/07/18 10:00 Mode of Arrival: Ambulatory Information source: Patient Notes: Patient states that around 9 AM this morning she was just starting to eat her breakfast she started to feel lightheaded. Patient states that she started to pass out and her [id number] helped her to the bed. Patient denies any injury. Patient did have a witnessed syncopal episode. Patient did not have any abdominal pain chest pain, shortness of breath nausea vomiting or diarrhea. Patient states she does have chronic low back pain but that this is typical of her arthritic pain. Patient states at this time she just feels weak. Patient states that around 8:00 this morning she had bladder spasm with left flank pain but that after voiding the bladder pain and flank pain resolved. TRAVEL OUTSIDE OF THE [place] IN LAST 30 DAYS: No - HPI Patient complains to provider of: Fainting Symptoms prior to episode: Back pain, Lightheaded. No: Abdominal pain, Chest pain, Nausea/vomiting, Palpitations, Short of breath Position/Activity at time of episode: Standing Quality of pain: Achy Pain Level: 3 Context: Lost consciousness. denies: Incontinent of stool, Incontinent of urine , Recent immobilization, Recent travel Current symptoms: Back pain. denies: Abdominal pain, Chest pain, Nausea, Neck pain, Vomiting Similar symptoms previously: No Recently seen / treated by doctor: No - Related Data Allergies/Adverse Reactions: No Known Allergies Allergy (Verified 07/07/18 09:36) Past Medical History - General Information source: Patient - Social History Smoking Status: Current Every Day Smoker Chew tobacco use (# tins/day): No Frequency of alcohol use: None Drug Abuse: None Lives with: Family Family History: CAD, COPD Patient has suicidal ideation: No Patient has homicidal ideation: No - Past Medical History Cardiac Medical History: Reports: Hx Hypertension Pulmonary Medical History: Reports: Hx COPD Endocrine Medical History: Reports: Hx Diabetes Mellitus Type 2 Renal/ Medical History: Denies: Hx Peritoneal Dialysis Psychiatric Medical History: Reports: Hx Depression Past Surgical History: Reports: Hx Hysterectomy - Immunizations Hx Diphtheria, Pertussis, Tetanus Vaccination: Yes Hx Pneumococcal Vaccination: 07/09/16 Review of Systems - Review of Systems Constitutional: Weakness. denies: Fever, Recent illness EENT: No symptoms reported Cardiovascular: Syncope. denies: Chest pain, Palpitations Respiratory: No symptoms reported. denies: Cough, Short of breath Gastrointestinal: No symptoms reported. denies: Abdominal pain, Nausea Genitourinary: No symptoms reported. denies: Dysuria Female Genitourinary: No symptoms reported Musculoskeletal: Back pain Skin: No symptoms reported Hematologic/Lymphatic: No symptoms reported Neurological/Psychological: No symptoms reported. denies: Headaches Physical Exam - Vital signs Vitals: Temp Pulse Resp BP Pulse Ox 98.3 F 53 L 18 154/61 H 98 07/07/18 09:41 07/07/18 09:41 07/07/18 09:41 07/07/18 09:41 07/07/18 09:41 - General General appearance: Appears well, Alert In distress: None - HEENT Head: Normocephalic, Atraumatic Eyes: Normal Conjunctiva: Normal Pupils: PERRL Nasal: Normal Mouth/Lips: Other - edentulous Mucous membranes: Normal Pharynx: Normal Neck: Normal, Supple. No: Lymphadenopathy - Respiratory Respiratory status: No respiratory distress Chest status: Nontender Breath sounds: Nonproductive cough, Rhonchi Chest palpation: Normal - Cardiovascular Rhythm: Regular Heart sounds: S1 appreciated, S2 appreciated - Abdominal Inspection: Obese Distension: No distension Bowel sounds: Normal Tenderness: Nontender Organomegaly: No organomegaly - Back Back: Normal, Nontender. No: CVA tenderness - Extremities General upper extremity: Normal inspection, Normal ROM General lower extremity: Normal inspection, Normal ROM - Neurological Neuro grossly intact: Yes Cognition: Normal [place] Coma Scale Eye Opening: Spontaneous [place] Coma Scale Verbal: Oriented [place] Coma Scale Motor: Obeys Commands [place] Coma Scale Total: 15 - Psychological Associated symptoms: Normal affect, Normal mood - Skin Skin Temperature: Warm Skin Moisture: Dry Skin Color: Ecchymosis - scattered ecchymosis to bilat upper extremities Course - Re-evaluation Re-evalutation: 07/07/18 12:[address] Talbot regarding patient presentation. Recommends repeating a second troponin giving her a fluid bolus. 07/07/18 16:00 RN encouraged to obtain repeat troponin. 07/07/18 17:[address] Simmons as patient is under his service. Message left with a portable cell phone, land phones in the department not functioning properly. No return call received from Dr. Simmons. Dr. Damon in the department who is on for cardiology today. Reviewed patient's EKG discussed patient presentation. Recommends outpatient follow-up with Dr. Simmons Patient denies any pain symptoms at this time. Patient states she is feeling better. Patient without any chest pain shortness of breath abdominal pain or back pain at this time. Consulted with Dr. Talbot regarding patient disposition. Agrees with discharge plan of care at this time after consultation with cardiology. Patient with negative troponin cycled 2. Patient without any chest pain abdominal pain or shortness of breath, patient denies complaints at this time. 07/07/18 18:07 Patient offered [facility] information that has electricity. Patient states that she knows that they are working on her power lines and expects to have electricity tomorrow. Patient states she prefers to stay at home. - Vital Signs Vital signs: Temp Pulse Resp BP Pulse Ox 98.3 F 53 L 17 169/67 H 99 07/07/18 09:41 07/07/18 09:41 07/07/18 17:01 07/07/18 17:01 07/07/18 17:01 - Laboratory Result Diagrams: 07/07/18 10:54 07/07/18 10:54 Laboratory results interpreted by me: 07/07/18 07/07/18 07/07/18 10:54 10:54 11:00 WBC 11.2 H Seg Neutrophils % 85.1 H Lymphocytes % 7.8 L Absolute Neutrophils 9.5 H Sodium 127.1 L Potassium 3.4 L Chloride 85 L Est GFR (Non-Af Amer) 52 L Glucose 164 H Direct Bilirubin 0.5 H Creatine Kinase 172 H Urine Blood SMALL H - Diagnostic Test Radiology reviewed: Reports reviewed Discharge - Discharge Clinical Impression: Hypokalemia Syncope Qualifiers: Syncope type: unspecified Qualified Code(s): R55 - Syncope and collapse Condition: Stable Disposition: HOME, SELF-CARE Instructions: Hypokalemia ([facility]), Syncopal Episode ([facility]) Additional Instructions: Return immediately for any new or worsening symptoms Followup with your primary care provider, call tomorrow to make a followup appointment Take your prescription potassium that you have at home as prescribed You will need to have your electrolytes rechecked, call your doctor on Monday to make a follow-up appointment. Referrals: THU DUARTE PA-C [NO LOCAL MD] - 07/09/18
[2018-07-07 11:48] LABS: APPEARANCE,URINE CLEAR; BILIRUBIN,URINE NEGATIVE (NEGATIVE); COLOR,URINE COLORLESS; GLUCOSE, URINE NEGATIVE (NEGATIVE); KETONES,URINE NEGATIVE (NEGATIVE); LEUKOCYTE ESTERASE,URINE NEGATIVE (NEGATIVE); NITRITE,URINE NEGATIVE (NEGATIVE); PROTEIN,URINE NEGATIVE (NEGATIVE); URINE SPECIFIC GRAVITY 1.008; UROBILINOGEN,URINE NEGATIVE mg/dL (<2.0)
[2018-07-07 11:50] LABS: ALANINE AMINOTRANSFERASE 30 U/L (9-52); ALBUMIN 4.5 g/dL (3.5-5.0); ALKALINE PHOSPHATASE 97 U/L (38-126); ANION GAP 14 (5-19); ASPARTATE AMINO TRANSFERASE 33 U/L (14-36); BILIRUBIN,DIRECT 0.5 mg/dL (0.0-0.4); BILIRUBIN,TOTAL 0.8 mg/dL (0.2-1.3); BLOOD UREA NITROGEN 19 mg/dL (7-20); CARBON DIOXIDE 28 mmol/L (22-30); CHLORIDE 85 mmol/L (98-107); CREATINE KINASE 172 U/L (30-135); GLUCOSE 164 mg/dL (75-110); POTASSIUM 3.4 mmol/L (3.6-5.0); SODIUM 127.1 mmol/L (137-145); TOTAL PROTEIN 7.8 g/dL (6.3-8.2)
[2018-07-07] MEDS ORDERED: RINGERS SOLUTION,LACTATED 500 ML IV ONE (11:58)
[2018-07-07 12:00] LABS: CREATINE KINASE MB 1.57 ng/mL (<4.55)
[2018-07-07] MEDS ORDERED: POTASSIUM CHLORIDE 20 MEQ/15 ML UDCUP PO ONE (12:00)
[2018-07-07 12:06] LABS: TROPONIN I < 0.012 ng/mL
[2018-07-07] MEDS ORDERED: MORPHINE SULFATE 10 MG/ML INJ IV ONE (13:12)
--- NOTE | 2018-07-07 14:16 | RADIOLOGY REPORT (SQ) ---
EXAM DESCRIPTION: U/S RETROPERITON (RENAL/AORTA) COMPLETED DATE/TIME: 07/07/2018 1:48 pm REASON FOR STUDY: HTN, L lower back pain, syncope COMPARISON: CT abdomen pelvis 10/03/2017 TECHNIQUE: Dynamic and static grayscale images acquired of the kidneys and bladder and recorded on P ACS. Additional selected color Doppler and spectral images recorded. LIMITATIONS: None. FINDINGS: RIGHT KIDNEY: Normal size, 12 cm in length. Normal cortical thickness and echogenicity. No solid or suspicious masses. No hydronephrosis. No calcifications. LEFT KIDNEY: Small, 8 cm in length with diffuse cortical thinning and increased echogenicity. 2 cm cyst left upper pole kidney. No solid or suspicious masses. No hydronephrosis. No calcifications. BLADDER: Incompletely distended. No masses. OTHER FINDINGS: No other significant finding. IMPRESSION: No acute findings. No hydronephrosis. Chronic left renal cortical thinning TECHNICAL DOCUMENTATION: JOB ID: [id number] [employer]- All Rights Reserved Reading location - IP/workstation name: [email or web address]
[2018-07-07 17:15] VITALS: BP 169/67
--- NOTE | 2018-07-07 21:18 | EKG REPORT ---
SEVERITY:- ABNORMAL ECG - SINUS RHYTHM NONSPECIFIC INTRAVENTRICULAR CONDUCTION DELAY : Confirmed by: Zeenat Simmons 07-Jul-2018 21:17:26
--- NOTE | 2018-07-07 21:19 | EKG REPORT ---
SEVERITY:- ABNORMAL ECG - REGULAR RHYTHM POSSIBLY SINUS CAN NOT R/O ATRIAL FIBRILLATION, REC REPEAT EKG BORDERLINE LEFT AXIS DEVIATION NONSPECIFIC T ABNORMALITIES, DIFFUSE LEADS : Confirmed by: Zeenat Simmons 07-Jul-2018 21:19:11
== END 2018-07-07 18:44 | disposition home or self-care (01) ==
LOC: ER 09:34
DX: R55 Syncope and collapse (principal); E87.6 Hypokalemia; M54.9 Dorsalgia, unspecified; R42 Dizziness and giddiness; F17.200 Nicotine dependence, unspecified, uncomplicated; I10 Essential (primary) hypertension; J44.9 Chronic obstructive pulmonary disease, unspecified; E11.9 Type 2 diabetes mellitus without complications
CPT/HCPCS: 93005; 99285; 96374; 36415; 82553; 82962; 82550; 83735; 85025; 80053; 81001; 84484; 71045; 76770; 70450; 93010; J2270; A9270

== ENCOUNTER 2018-10-23 15:26 | Emergency (ER) | payer MEDICARE, MEDICAID ==
--- NOTE | 2018-10-23 16:50 | ER Document Report ---
ED Medical Screen (RME) - General Chief Complaint: Fever Stated Complaint: DIFFICULTY BREATHING Time Seen by Provider: 10/23/18 16:42 Notes: Patient says that she has had a cough with some fever for the past couple of days. Last night, began to feel very weak. She has been nauseated but not vomiting. No diarrhea. Had some slight cough yesterday but not today. Has a history of COPD. PMH: Partial hysterectomy, NIDDM, hypertension, heart disease. TRAVEL OUTSIDE OF THE [place] IN LAST 30 DAYS: No - Related Data Allergies/Adverse Reactions: No Known Allergies Allergy (Verified 07/07/18 09:36) Past Medical History - Social History Chew tobacco use (# tins/day): No Frequency of alcohol use: None Drug Abuse: None - Past Medical History Cardiac Medical History: Reports: Hx Hypertension Pulmonary Medical History: Reports: Hx COPD Endocrine Medical History: Reports: Hx Diabetes Mellitus Type 2 Renal/ Medical History: Denies: Hx Peritoneal Dialysis Psychiatric Medical History: Reports: Hx Depression Past Surgical History: Reports: Hx Hysterectomy - Immunizations Hx Diphtheria, Pertussis, Tetanus Vaccination: Yes Physical Exam - Vital signs Vitals: Temp Pulse Resp BP Pulse Ox 99.8 F 80 17 127/82 H 91 L 10/23/18 15:32 10/23/18 15:32 10/23/18 15:32 10/23/18 15:32 10/23/18 15:32 Course - Vital Signs Vital signs: Temp Pulse Resp BP Pulse Ox 99.8 F 80 17 127/82 H 91 L 10/23/18 15:32 10/23/18 15:32 10/23/18 15:32 10/23/18 15:32 10/23/18 15:32
[2018-10-23 17:37] LABS: INTERNATIONAL RATION (INR) 0.95; PROTHROMBIN TIME 13.2 SEC (11.4-15.4)
[2018-10-23 17:45] LABS: HEMATOCRIT 34.8 % (36.0-47.0); HEMOGLOBIN 11.9 g/dL (12.0-15.5); MEAN CORPUSCULAR HEMOGLOBIN 27.5 pg (27.0-33.4); MEAN CORPUSCULAR HGB CONC 34.1 g/dL (32.0-36.0); MEAN CORPUSCULAR VOLUME 81 fl (80-97); PLATELET COUNT 290 10^3/uL (150-450); RED BLOOD COUNT 4.31 10^6/uL (3.72-5.28); RED CELL DISTRIBUTION WIDTH 14.6 % (11.5-14.0); WHITE BLOOD COUNT 13.6 10^3/uL (4.0-10.5)
[2018-10-23 17:47] LABS: ALANINE AMINOTRANSFERASE 22 U/L (9-52); ALBUMIN 3.9 g/dL (3.5-5.0); ALKALINE PHOSPHATASE 90 U/L (38-126); ANION GAP 12 (5-19); ASPARTATE AMINO TRANSFERASE 26 U/L (14-36); BILIRUBIN,DIRECT 0.2 mg/dL (0.0-0.4); BILIRUBIN,TOTAL 0.6 mg/dL (0.2-1.3); BLOOD UREA NITROGEN 24 mg/dL (7-20); CALCIUM 9.3 mg/dL (8.4-10.2); CARBON DIOXIDE 29 mmol/L (22-30); CHLORIDE 87 mmol/L (98-107); GLUCOSE 141 mg/dL (75-110); POTASSIUM 3.6 mmol/L (3.6-5.0); SODIUM 127.6 mmol/L (137-145); TOTAL PROTEIN 6.7 g/dL (6.3-8.2)
--- NOTE | 2018-10-23 18:08 | RADIOLOGY REPORT (SQ) ---
EXAM DESCRIPTION: CHEST 2 VIEWS COMPLETED DATE/TIME: 10/23/2018 5:57 pm REASON FOR STUDY: Cough and congestion and fever COMPARISON: 11/11/2016. EXAM PARAMETERS: NUMBER OF VIEWS: two views TECHNIQUE: Digital Frontal and Lateral radiographic views of the chest acquired. RADIATION DOSE: NA LIMITATIONS: none FINDINGS: LUNGS AND PLEURA: No opacities, masses or pneumothorax. No pleural effusion. MEDIASTINUM AND HILAR STRUCTURES: No masses or contour abnormalities. HEART AND VASCULAR STRUCTURES: Heart normal size. No evidence for failure. BONES: No acute findings. Degenerative changes in the spine. HARDWARE: None in the chest. OTHER: No other significant finding. IMPRESSION: NO ACUTE RADIOGRAPHIC FINDING IN THE CHEST. TECHNICAL DOCUMENTATION: JOB ID: [id number] [employer]- All Rights Reserved Reading location - IP/workstation name: [email or web address]
[2018-10-23 18:14] LABS: ABSOLUTE LYMPHOCYTES# (MANUAL) 0.4 10^3/uL (0.5-4.7); ABSOLUTE MONOCYTES # (MANUAL) 0.3 10^3/uL (0.1-1.4); ABSOLUTE NEUTROPHILS# (MANUAL) 12.9 10^3/uL (1.7-8.2); BASOPHILS % (MANUAL) 0 % (0-2); EOSINOPHILS % (MANUAL) 0 % (0-6); LYMPHOCYTES % (MANUAL) 3 % (13-45); MONOCYTES % (MANUAL) 2 % (3-13); SEGMENTED NEUTROPHILS % (MAN) 95 % (42-78); TOTAL CELLS COUNTED 100
[2018-10-23 18:15] LABS: ANISOCYTOSIS SLIGHT; PLATELET COMMENT ADEQUATE; PLATELET LARGE PRESENT; POLYCHROMASIA SLIGHT
--- NOTE | 2018-10-23 19:12 | ER Document Report ---
ED Fever - General Chief Complaint: Fever Stated Complaint: DIFFICULTY BREATHING Time Seen by Provider: 10/23/18 16:42 Mode of Arrival: Ambulatory Information source: Patient Notes: Patient is a 73-year-old female with history of COPD who presents with 2 days of worsening productive cough and intermittent fevers that are improved with Tylenol. Patient reports symptoms are similar to episodes in the past where she had "bronchitis." She denies chest pain, no shortness of breath, no abdominal pain, no nausea or vomiting, no known sick contacts. Patient reports slight improvement with home nebulizer treatments. TRAVEL OUTSIDE OF THE [place] IN LAST 30 DAYS: No - HPI Onset: Other - 2 days ago Onset/Duration: Gradual Quality of pain: No pain Severity: Mild Pain Level: Denies Context: Cough, Other - COPD Associated symptoms: Productive cough, Fever. denies: Chest pain Similar symptoms previously: Yes - Bronchitis Recently seen / treated by doctor: No - Related Data Allergies/Adverse Reactions: No Known Allergies Allergy (Verified 07/07/18 09:36) Past Medical History - General Information source: Patient - Social History Smoking Status: Never Smoker Chew tobacco use (# tins/day): No Frequency of alcohol use: None Drug Abuse: None Lives with: Family Family History: CAD, COPD Patient has suicidal ideation: No Patient has homicidal ideation: No - Past Medical History Cardiac Medical History: Reports: Hx Hypertension Pulmonary Medical History: Reports: Hx COPD EENT Medical History: Reports: None Neurological Medical History: Reports: None Endocrine Medical History: Reports: Hx Diabetes Mellitus Type 2 Renal/ Medical History: Reports: None. Denies: Hx Peritoneal Dialysis Malignancy Medical History: Reports: None GI Medical History: Reports: None Musculoskeletal Medical History: Reports None Skin Medical History: Reports None Psychiatric Medical History: Reports: Hx Depression Traumatic Medical History: Reports: None Infectious Medical History: Reports: None Past Surgical History: Reports: Hx Hysterectomy - Immunizations Immunizations up to date: Yes Hx Diphtheria, Pertussis, Tetanus Vaccination: Yes Hx Pneumococcal Vaccination: 07/09/16 Review of Systems - Review of Systems Constitutional: See HPI, Fever, Weakness EENT: No symptoms reported Cardiovascular: No symptoms reported Respiratory: See HPI, Cough, Wheezing Gastrointestinal: No symptoms reported Genitourinary: No symptoms reported Female Genitourinary: No symptoms reported Musculoskeletal: No symptoms reported Skin: No symptoms reported Hematologic/Lymphatic: No symptoms reported Neurological/Psychological: No symptoms reported -: Yes All other systems reviewed and negative Physical Exam - Vital signs Vitals: Temp Pulse Resp BP Pulse Ox 99.8 F 80 17 127/82 H 91 L 10/23/18 15:32 10/23/18 15:32 10/23/18 15:32 10/23/18 15:32 10/23/18 15:32 Interpretation: Normal - Notes Notes: Well-appearing in no acute distress - General General appearance: Appears well, Alert - HEENT Head: Normocephalic, Atraumatic Eyes: Normal Pupils: PERRL - Respiratory Respiratory status: No respiratory distress Chest status: Nontender Breath sounds: Wheezing - Mild. No: Rales, Rhonchi Chest palpation: Normal - Cardiovascular Rhythm: Regular Heart sounds: Normal auscultation Murmur: Yes - 3/6 systolic Pulses: Normal: Brachial, Radial Normal capillary refill: Yes - Abdominal Inspection: Normal Distension: No distension Bowel sounds: Normal Tenderness: Nontender Organomegaly: No organomegaly - Rectal Notes: Deferred - Genitourinary Notes: Deferred - Back Back: Normal, Nontender - Extremities General upper extremity: Normal inspection, Nontender, Normal color, Normal ROM, Normal temperature General lower extremity: Normal inspection, Nontender, Normal color, Normal ROM, Normal temperature, Normal weight bearing. No: Jeff's sign - Neurological Neuro grossly intact: Yes Cognition: Normal Orientation: AAOx4 [place] Coma Scale Eye Opening: Spontaneous [place] Coma Scale Verbal: Oriented [place] Coma Scale Motor: Obeys Commands [place] Coma Scale Total: 15 Speech: Normal Motor strength normal: LUE, RUE, LLE, RLE Sensory: Normal - Psychological Associated symptoms: Normal affect, Normal mood - Skin Skin Temperature: Warm Skin Moisture: Dry Skin Color: Normal Course - Re-evaluation Re-evalutation: 10/23/18 19:59 Presenting history, symptoms, and exam consistent with likely COPD exacerbation versus bronchitis, pneumonia is also a possibility, cardiac less likely but also possible. Will reassess after labs and cardiac enzymes. Chest x-ray is negative for acute pneumonia. Patient will be given IV Solu-Medrol as well as Azithromycin. 10/23/18 21:32 Patient continues to improve and no longer has wheezes, feels back to her normal self. She will be discharged home with return precautions and prescriptions for steroids, azithromycin, as well as albuterol nebulizer solution. But the patie gali and her daughter, power of assistant city attorney, voiced understanding and agreeing with the plan. - Vital Signs Vital signs: Temp Pulse Resp BP Pulse Ox 99.8 F 80 16 124/57 L 97 10/23/18 15:32 10/23/18 15:32 10/23/18 20:33 10/23/18 20:33 10/23/18 20:33 - Laboratory Result Diagrams: 10/23/18 17:20 10/23/18 17:20 Laboratory results interpreted by me: 10/23/18 10/23/18 10/23/18 17:20 17:20 19:00 WBC 13.6 H Hgb 11.9 L Hct 34.8 L RDW 14.6 H Seg Neuts % (Manual) 95 H Lymphocytes % (Manual) 3 L Monocytes % (Manual) 2 L Abs Neuts (Manual) 12.9 H Abs Lymphs (Manual) 0.4 L Sodium 127.6 L Chloride 87 L BUN 24 H Est GFR ( Amer) 51 L Est GFR (Non-Af Amer) 43 L Glucose 141 H Urine Blood SMALL H Ur Leukocyte Esterase SMALL H - Diagnostic Test Radiology reviewed: Reports reviewed - EKG Interpretation by Me EKG shows normal: Sinus rhythm Rate: Normal Rhythm: NSR [place]/QRS: No: Right axis deviation, Left axis deviation, RBBB, LBBB, IVCD, LAHB/LAFB, LPHB/LPFB, Bifasicular block P Waves: No: MAYCOL, LAE, Absent, AV Dissociation, Other When compared to previous EKG there are: No significant change Discharge - Discharge Clinical Impression: Cough Acute bronchitis Qualifiers: Bronchitis organism: unspecified organism Qualified Code(s): J20.9 - Acute bronchitis, unspecified Condition: Good Disposition: HOME, SELF-CARE Instructions: Bronchitis ([facility]) Additional Instructions: Please follow-up with your primary physician in 1 week to be rechecked. Return to the emergency department if you experience chest pain, increased shortness of breath, or have any other concerning symptom. Prescriptions: Albuterol Sulfate [Ventolin 0.083% Neb 2.5 mg/3 mL Ampul] 1 vial NEB Q4 PRN #120 vial PRN Reason: For Wheezing Azithromycin 500 mg PO DAILY #5 tablet Hydrocodone/Chlorphen P-Stirex [Tussionex Pennkinetic Susp] 10 ml PO BID PRN #140 darius.er.12h PRN Reason: Cough Methylprednisolone [Medrol Dosepack (4 mg/Tab) 21 Tab/Dosepak] 4 mg PO ASDIR PRN #21 tab.ds.pk PRN Reason: Print Language: [place] Islander
[2018-10-23] MEDS ORDERED: AZITHROMYCIN INJ 500 MG VIAL IV ONE (19:41)
[2018-10-23] MEDS ORDERED: METHYLPREDNISOLONE INJ 125 MG/2 ML SDV IV ONE (19:41)
[2018-10-23 19:42] LABS: APPEARANCE,URINE CLOUDY; BILIRUBIN,URINE NEGATIVE (NEGATIVE); GLUCOSE, URINE NEGATIVE (NEGATIVE); KETONES,URINE NEGATIVE (NEGATIVE); LEUKOCYTE ESTERASE,URINE SMALL (NEGATIVE); NITRITE,URINE NEGATIVE (NEGATIVE); PROTEIN,URINE NEGATIVE (NEGATIVE); URINE SPECIFIC GRAVITY 1.017; UROBILINOGEN,URINE NEGATIVE mg/dL (<2.0)
[2018-10-23 19:46] LABS: COLOR,URINE YELLOW
--- NOTE | 2018-10-23 19:47 | EKG REPORT ---
SEVERITY:- OTHERWISE NORMAL ECG - SINUS RHYTHM BORDERLINE LEFT AXIS DEVIATION : Confirmed by: Rashmi Damon MD 23-Oct-2018 19:47:15
[2018-10-23 21:53] VITALS: BP 136/73
== END 2018-10-23 21:54 | disposition home or self-care (01) ==
LOC: ER 15:26
DX: J20.9 Acute bronchitis, unspecified (principal); J44.0 Chronic obstructive pulmonary disease with (acute) lower respiratory infection; R05 Cough; R50.9 Fever, unspecified; I10 Essential (primary) hypertension; E11.9 Type 2 diabetes mellitus without complications; R53.1 Weakness; R01.1 Cardiac murmur, unspecified
CPT/HCPCS: 93005; 99284; 96375; 96365; 36415; 87040; 87086; 85025; 85610; 80053; 81001; 71046; 93010; J2930; J0456

== ENCOUNTER 2019-07-02 16:31 | Emergency (ER) | payer MEDICARE, MEDICAID ==
--- NOTE | 2019-07-02 17:21 | RADIOLOGY REPORT (SQ) ---
EXAM DESCRIPTION: CT HEAD WITHOUT COMPLETED DATE/TIME: 07/02/2019 5:00 pm REASON FOR STUDY: syncope COMPARISON: 07/07/2018 TECHNIQUE: Axial images acquired through the brain without intravenous contrast. Images reviewed wi th bone, brain and subdural windows. Additional sagittal and coronal reconstructions were generated. Images stored on PACS. All CT scanners at this facility use dose modulation, iterative reconstruction, and/or weight based d osing when appropriate to reduce radiation dose to as low as reasonably achievable (ALARA). [facility]: Dose Right [facility]: CareDose [facility]: Dose Right [facility]: Teradose 4D [facility]: [employer] RADIATION DOSE: CT Rad equipment meets quality standard of care and radiation dose reduction techniq ues were employed. CTDIvol: 53.2 mGy. DLP: 964 mGy-cm. mGy. LIMITATIONS: None. FINDINGS: VENTRICLES: Normal size and contour. CEREBRUM: No masses. No hemorrhage. No midline shift. No evidence for acute infarction. Normal gra y/white matter differentiation. No areas of low density in the white matter. CEREBELLUM: No masses. No hemorrhage. No alteration of density. No evidence for acute infarction. EXTRAAXIAL SPACES: No fluid collections. No masses. ORBITS AND GLOBE: No intra- or extraconal masses. Normal contour of globe without masses. CALVARIUM: No fracture. PARANASAL SINUSES: No fluid or mucosal thickening. SOFT TISSUES: No mass or hematoma. OTHER: No other significant finding. IMPRESSION: NORMAL BRAIN CT WITHOUT CONTRAST. EVIDENCE OF ACUTE STROKE: NO. COMMENT: Quality ID # 436: Final reports with documentation of one or more dose reduction techniques (e.g., Automated exposure control, adjustment of the mA and/or kV according to patient size, use of iterative reconstruction technique) TECHNICAL DOCUMENTATION: JOB ID: [id number] [employer]- All Rights Reserved Reading location - IP/workstation name: [email or web address]
[2019-07-02 17:41] LABS: ABSOLUTE BASOPHILS # (AUTO) 0.1 10^3/uL (0.0-0.2); ABSOLUTE EOSINOPHILS # (AUTO) 0.1 10^3/uL (0.0-0.6); ABSOLUTE LYMPHOCYTES (AUTO) 1.1 10^3/uL (0.5-4.7); ABSOLUTE MONOCYTES (AUTO) 0.6 10^3/uL (0.1-1.4); ABSOLUTE NEUT (AUTO) 6.3 10^3/uL (1.7-8.2); BASOPHILS % (AUTO) 0.9 % (0-2); EOSINOPHILS % (AUTO) 1.7 % (0-6); HEMOGLOBIN 11.2 g/dL (12.0-15.5); LYMPHOCYTES % (AUTO) 13.4 % (13-45); MEAN CORPUSCULAR HEMOGLOBIN 27.3 pg (27.0-33.4); MEAN CORPUSCULAR HGB CONC 34.9 g/dL (32.0-36.0); MEAN CORPUSCULAR VOLUME 78 fl (80-97); MONOCYTES % (AUTO) 7.7 % (3-13); PLATELET COUNT 335 10^3/uL (150-450); RED BLOOD COUNT 4.09 10^6/uL (3.72-5.28); RED CELL DISTRIBUTION WIDTH 15.8 % (11.5-14.0); SEGMENTED NEUTROPHILS % (AUTO) 76.3 % (42-78); TOTAL CELLS COUNTED % (AUTO) 100 %; WHITE BLOOD COUNT 8.2 10^3/uL (4.0-10.5)
[2019-07-02 17:59] LABS: ALKALINE PHOSPHATASE 94 U/L (38-126); ANION GAP 13 (5-19); ASPARTATE AMINO TRANSFERASE 26 U/L (14-36); BILIRUBIN,DIRECT 0.1 mg/dL (0.0-0.4); BILIRUBIN,TOTAL 0.4 mg/dL (0.2-1.3); BLOOD UREA NITROGEN 21 mg/dL (7-20); CARBON DIOXIDE 30 mmol/L (22-30); CHLORIDE 87 mmol/L (98-107); CREATINE KINASE 68 U/L (30-135); GLUCOSE 115 mg/dL (75-110); POTASSIUM 3.3 mmol/L (3.6-5.0); TOTAL PROTEIN 6.8 g/dL (6.3-8.2)
[2019-07-02 18:11] LABS: CREATINE KINASE MB 0.61 ng/mL (<4.55); TROPONIN I < 0.012 ng/mL
[2019-07-02] MEDS ORDERED: NORMAL SALINE 1000 ML 1,000 ML IV ONE (18:51)
[2019-07-02 20:30] LABS: APPEARANCE,URINE CLEAR; BILIRUBIN,URINE NEGATIVE (NEGATIVE); COLOR,URINE COLORLESS; GLUCOSE, URINE NEGATIVE (NEGATIVE); KETONES,URINE NEGATIVE (NEGATIVE); LEUKOCYTE ESTERASE,URINE SMALL (NEGATIVE); NITRITE,URINE NEGATIVE (NEGATIVE); PROTEIN,URINE NEGATIVE (NEGATIVE); UROBILINOGEN,URINE NEGATIVE mg/dL (<2.0)
--- NOTE | 2019-07-02 20:38 | RADIOLOGY REPORT (SQ) ---
EXAM DESCRIPTION: CT CHEST ANGIOGRAPHY WITHOUT THEN WITH IV CONTRAST COMPLETED DATE/TME: 07/02/2019 19:19 CLINICAL HISTORY: 74 years, Female, syncope/hx clots COMPARISON: None. TECHNIQUE: Contrast enhanced CT of the chest was performed. Oblique MIPS were created. Images stored on PACS. All CT scanners at this facility use dose modulation, iterative reconstruction, and/or weight based dosing when appropriate to reduce radiation dose to as low as reasonably achievable (ALARA). [facility]: Dose Right [facility]: CareDose [facility]: Dose Right [facility]: Teradose 4D [facility]: [employer] LIMITATIONS: None. FINDINGS: Central airways are patent. Lung windows show no suspicious findings. Mediastinal windows show a few small/nonenlarged mediastinal/bilateral hilar lymph nodes, none of which appear significantly enlarged by CT criteria. Calcifications are evident about the coronary vessels and thoracic aorta. The main pulmonary artery is enlarged, measuring 3.6 cm in short axis. Aortic valvular calcifications are suspected. The study is somewhat limited for the evaluation of pulmonary emboli secondary to motion artifact. No filling defects are identified to the lobar level. The graft Limited evaluation of the upper abdomen reveals a simple cyst emanating from the upper pole of the left kidney. The left kidney appears atrophic. No additional suspicious findings are evident within the imaged upper abdomen. Bone windows show no destructive osseous lesions. IMPRESSION: Limited study secondary to motion artifact. No definitive evidence of pulmonary embolism to the lobar level or other acute abnormality within the chest. Main pulmonary arterial enlargement. Correlate for pulmonary hypertension. TECHNICAL DOCUMENTATION: Quality ID # [id number]: Final reports with documentation of one or more dose reduction techniques (e.g., Automated exposure control, adjustment of the mA and/or kV according to patient size, use of iterative reconstruction technique) copyright 2011 [employer]- All Rights Reserved
--- NOTE | 2019-07-02 20:40 | ER Document Report ---
ED Dizziness/Weakness - General Chief Complaint: Near Syncope Stated Complaint: SYNCOPE Time Seen by Provider: 07/02/19 16:37 Primary Care Provider: LUISA TYSON JR, MD [Primary Care Provider] - Follow up as needed Mode of Arrival: Medic Information source: Patient, Relative TRAVEL OUTSIDE OF THE [place] IN LAST 30 DAYS: No - HPI Notes: Patient is brought in by paramedics. Patient's daughter called paramedics due to a syncopal episode at home. Patient states she remembers feeling dizzy and the next thing she remembers she was on the floor. She states she is not sure if she lost consciousness. Daughter states patient mentioned that she felt dizzy and then sat down. Daughter states patient then started to fall towards the floor and she helped her mom to the floor. She then states her mom became unresponsive for several minutes. Patient denies any chest pain or shortness of breath. No vomiting or diarrhea. No previous history of similar problems. No history of DVT or clots. Patient's symptoms were intermittent. They were severe. There is no radiation symptoms. They appear to be made worse by exertion and is slightly better with reclining on the floor. No recent trauma or falls. - Related Data Allergies/Adverse Reactions: No Known Allergies Allergy (Verified 07/07/18 09:36) Past Medical History - General Information source: Patient, Relative - Social History Smoking Status: Current Some Day Smoker Frequency of alcohol use: None Drug Abuse: None Family History: CAD, COPD Patient has suicidal ideation: No Patient has homicidal ideation: No - Past Medical History Cardiac Medical History: Reports: Hx Hypertension Pulmonary Medical History: Reports: Hx COPD Endocrine Medical History: Reports: Hx Diabetes Mellitus Type 2 Renal/ Medical History: Denies: Hx Peritoneal Dialysis Psychiatric Medical History: Reports: Hx Depression Past Surgical History: Reports: Hx Hysterectomy - Immunizations Immunizations up to date: Yes Hx Diphtheria, Pertussis, Tetanus Vaccination: Yes Hx Pneumococcal Vaccination: 07/09/16 Review of Systems - Review of Systems Constitutional: Weakness. denies: Chills, Fever Cardiovascular: denies: Chest pain, Dyspnea Respiratory: denies: Cough, Short of breath Gastrointestinal: denies: Abdominal pain, Vomiting -: Yes All other systems reviewed and negative Physical Exam - Vital signs Vitals: Temp Pulse Resp BP Pulse Ox 97.8 F 51 L 15 154/57 H 99 07/02/19 16:42 07/02/19 16:42 07/02/19 16:42 07/02/19 16:42 07/02/19 16:42 Interpretation: Bradycardic - General General appearance: Appears well, Alert - HEENT Head: Normocephalic, Atraumatic Eyes: Normal Pupils: PERRL - Respiratory Respiratory status: No respiratory distress Chest status: Nontender Breath sounds: Normal Chest palpation: Normal - Cardiovascular Rhythm: Regular Heart sounds: Normal auscultation Murmur: No - Abdominal Inspection: Normal Distension: No distension Bowel sounds: Normal Tenderness: Nontender Organomegaly: No organomegaly - Back Back: Normal, Nontender - Extremities General upper extremity: Normal inspection, Nontender, Normal color, Normal ROM, Normal temperature General lower extremity: Nontender, Edema - 2+ bilaterally, Normal color, Normal ROM, Normal temperature, Normal weight bearing. No: Jeff's sign - Neurological Neuro grossly intact: Yes Cognition: Normal Orientation: AAOx4 Marybeth Coma Scale Eye Opening: Spontaneous [place] Coma Scale Verbal: Oriented [place] Coma Scale Motor: Obeys Commands Marybeth Coma Scale Total: 15 Speech: Normal Motor strength normal: LUE, RUE, LLE, RLE Sensory: Normal - Psychological Associated symptoms: Normal affect, Normal mood - Skin Skin Temperature: Warm Skin Moisture: Dry Skin Color: Normal Course - Re-evaluation Re-evalutation: 07/02/19 20:46 Patient rechecked just now. She is resting comfortably in the bed and says she would like to go home and eat dinner. She has no symptoms currently. She has had an unremarkable course in the emergency room. Imaging is unremarkable. Laboratories unremarkable other than some mild hyponatremia and some mild dehydration. She was given a liter of fluids for this. She has no evidence of infection. No evidence of abnormal rhythms on EKG or monitor. I am unsure what may have caused the syncope but I do not find any evidence that further evaluation or monitoring in the hospital with the benefit to the patient. I did instruct her and her daughter the patient needs to be rechecked tomorrow by the primary care physician. They states that they understood this. HR now 68. 07/02/19 20:49 - Vital Signs Vital signs: Temp Pulse Resp BP Pulse Ox 97.8 F 51 L 14 173/70 H 100 07/02/19 16:42 07/02/19 16:49 07/02/19 20:10 07/02/19 20:10 07/02/19 20:10 - Laboratory Result Diagrams: 07/02/19 17:12 07/02/19 17:12 Laboratory results interpreted by me: 07/02/19 07/02/19 07/02/19 17:12 17:12 20:07 Hgb 11.2 L Hct 32.0 L MCV 78 L RDW 15.8 H Sodium 129.8 L Potassium 3.3 L Chloride 87 L BUN 21 H Creatinine 1.30 H Est GFR ( Amer) 49 L Est GFR (MDRD) Non-Af 40 L Glucose 115 H Urine Blood SMALL H Ur Leukocyte Esterase SMALL H - Diagnostic Test Radiology reviewed: Image reviewed, Reports reviewed - EKG Interpretation by Me EKG shows normal: Sinus rhythm Rate: Bradycardia - 51 Rhythm: NSR Heart block present: 1st Degree Discharge - Discharge Clinical Impression: Syncope and collapse, Hyponatremia Condition: Stable Disposition: HOME, SELF-CARE Instructions: Hyponatremia ([facility]), Dehydration ([facility]), Syncopal Episode ([facility]) Additional Instructions: It is very important that you call your primary care physician first thing in the morning and asked to be rechecked tomorrow. Referrals: LUISA TYSON JR, MD [Primary Care Provider] - Follow up tomorrow
--- NOTE | 2019-07-02 20:55 | EKG REPORT ---
SEVERITY:- ABNORMAL ECG - SINUS RHYTHM FIRST DEGREE AV BLOCK BORDERLINE T ABNORMALITIES, LATERAL LEADS : Confirmed by: Rashmi Damon MD 02-Jul-2019 20:54:32
[2019-07-02 21:21] VITALS: BP 159/67
== END 2019-07-02 21:20 | disposition home or self-care (01) ==
LOC: ER 16:31
DX: R55 Syncope and collapse (principal); R00.1 Bradycardia, unspecified; R53.1 Weakness; R60.0 Localized edema; I44.0 Atrioventricular block, first degree; E87.1 Hypo-osmolality and hyponatremia; J44.9 Chronic obstructive pulmonary disease, unspecified; I10 Essential (primary) hypertension; E11.9 Type 2 diabetes mellitus without complications; F17.200 Nicotine dependence, unspecified, uncomplicated
CPT/HCPCS: 93005; 36415; 82553; 82550; 85025; 80053; 81001; 84484; 70450; 71275; 93010; J7030

== ENCOUNTER 2019-07-25 03:22 | Emergency (ER) | payer MEDICARE, MEDICAID ==
--- NOTE | 2019-07-25 04:16 | RADIOLOGY REPORT (SQ) ---
EXAM DESCRIPTION: CT HEAD WITHOUT IV CONTRAST COMPLETED DATE/TME: 07/25/2019 00:00 CLINICAL HISTORY: fall, hematoma to face, on blood thinners COMPARISON: 07/02/2019 TECHNIQUE: Axial CT of the head obtained from the skull apex to the skull base without contrast. FINDINGS: No acute intracranial hemorrhage identified. No mass, mass effect, shift of the midline, abnormal extra-axial fluid collection or CT evidence of acute ischemic change identified. The ventricular system and sulcal spaces are age appropriate. Scattered areas of hypodensity throughout the supratentorial white matter are nonspecific and may be related to chronic small vessel ischemic change. The visualized paranasal sinuses and the mastoids are clear. Contusion/hematoma in the left frontal scalp subcutaneous soft tissues. No skull fracture identified. Visualized orbits and globes are unremarkable. Atherosclerotic calcification of the intracranial internal carotid arteries. DLP: mGy-cm IMPRESSION: 1. No acute intracranial abnormality by CT criteria. This exam was performed according to our departmental dose-optimization program, which includes automated exposure control, adjustment of the mA and/or kV according to patient size and/or use of iterative reconstruction technique.
--- NOTE | 2019-07-25 04:20 | RADIOLOGY REPORT (SQ) ---
EXAM DESCRIPTION: CT CERVICAL SPINE WITHOUT IV CONTRAST COMPLETED DATE/TME: 07/25/2019 03:36 CLINICAL HISTORY: Fall/pain COMPARISON: None available TECHNIQUE: Axial CT of the cervical spine obtained without contrast. FINDINGS: Straightening of the cervical lordosis may be secondary to patient positioning. The atlantoaxial, atlantodental, and occipitoatlantal intervals are preserved. No fracture identified. Vertebral body height preserved. Prevertebral soft tissues are unremarkable. 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 Mild to moderate multilevel loss of intervertebral disc height throughout the cervical spine with endplate spondylosis, facet arthropathy, and uncovertebral spurring. Visualized skull base is intact. No fracture of the visualized facial bones. Visualized mastoid air cells and paranasal sinuses are well aerated. Visualized thyroid is unremarkable. No cervical lymphadenopathy. No pneumothorax in the visualized lung apices. DLP: 502.88 mGy-cm IMPRESSION: 1. No acute fracture or subluxation of the cervical spine. This exam was performed according to our departmental dose-optimization program, which includes automated exposure control, adjustment of the mA and/or kV according to patient size and/or use of iterative reconstruction technique.
[2019-07-25 04:53] LABS: ABSOLUTE BASOPHILS # (AUTO) 0.1 10^3/uL (0.0-0.2); ABSOLUTE EOSINOPHILS # (AUTO) 0.2 10^3/uL (0.0-0.6); ABSOLUTE LYMPHOCYTES (AUTO) 1.1 10^3/uL (0.5-4.7); ABSOLUTE MONOCYTES (AUTO) 0.6 10^3/uL (0.1-1.4); BASOPHILS % (AUTO) 0.6 % (0-2); EOSINOPHILS % (AUTO) 1.9 % (0-6); HEMATOCRIT 33.1 % (36.0-47.0); HEMOGLOBIN 11.2 g/dL (12.0-15.5); LYMPHOCYTES % (AUTO) 12.5 % (13-45); MEAN CORPUSCULAR HEMOGLOBIN 26.9 pg (27.0-33.4); MEAN CORPUSCULAR HGB CONC 33.8 g/dL (32.0-36.0); MEAN CORPUSCULAR VOLUME 79 fl (80-97); MONOCYTES % (AUTO) 6.9 % (3-13); PLATELET COUNT 288 10^3/uL (150-450); RED BLOOD COUNT 4.17 10^6/uL (3.72-5.28); RED CELL DISTRIBUTION WIDTH 15.8 % (11.5-14.0); SEGMENTED NEUTROPHILS % (AUTO) 78.1 % (42-78); TOTAL CELLS COUNTED % (AUTO) 100 %
[2019-07-25 05:02] LABS: INTERNATIONAL RATION (INR) 0.97; PROTHROMBIN TIME 12.9 SEC (11.4-15.4)
[2019-07-25 05:03] LABS: PARTIAL THROMBOPLASTIN TIME 26.1 SEC (23.5-35.8)
[2019-07-25] MEDS ORDERED: ACETAMINOPHEN 325 MG TABLET PO ONE (05:07)
[2019-07-25 05:09] LABS: ALBUMIN 3.7 g/dL (3.5-5.0); ALKALINE PHOSPHATASE 100 U/L (38-126); ANION GAP 12 (5-19); ASPARTATE AMINO TRANSFERASE 24 U/L (14-36); BILIRUBIN,DIRECT 0.1 mg/dL (0.0-0.4); BILIRUBIN,TOTAL 0.5 mg/dL (0.2-1.3); BLOOD UREA NITROGEN 20 mg/dL (7-20); CALCIUM 9.8 mg/dL (8.4-10.2); CARBON DIOXIDE 30 mmol/L (22-30); CHLORIDE 86 mmol/L (98-107); GLUCOSE 114 mg/dL (75-110); POTASSIUM 3.3 mmol/L (3.6-5.0); TOTAL PROTEIN 6.7 g/dL (6.3-8.2)
[2019-07-25 05:19] LABS: APPEARANCE,URINE SLIGHTLY-CLOUDY; BILIRUBIN,URINE NEGATIVE (NEGATIVE); COLOR,URINE YELLOW; GLUCOSE, URINE NEGATIVE (NEGATIVE); KETONES,URINE NEGATIVE (NEGATIVE); LEUKOCYTE ESTERASE,URINE NEGATIVE (NEGATIVE); NITRITE,URINE NEGATIVE (NEGATIVE); PROTEIN,URINE NEGATIVE (NEGATIVE); URINE SPECIFIC GRAVITY 1.008; UROBILINOGEN,URINE NEGATIVE mg/dL (<2.0)
[2019-07-25] MEDS ORDERED: NORMAL SALINE 1000 ML 1,000 ML IV ONE (05:45)
[2019-07-25] MEDS ORDERED: POTASSIUM CHLORIDE 20 MEQ PACKET PO ONE (05:45)
--- NOTE | 2019-07-25 05:56 | ER Document Report ---
ED Fall - General Chief Complaint: Fall Stated Complaint: FALL Time Seen by Provider: 07/25/19 03:34 Primary Care Provider: LUISA TYSON JR, MD [Primary Care Provider] - Follow up as needed Notes: Patient is a 74-year-old female presents to the emergency department after a fall. States she attempted to get up to go to the bathroom when she fell over her walker. Patient initially was denying any lightheadedness, weakness, dizziness. Patient then voices she has had generalized weakness for approximately the last week. Patient's denying any shortness of breath or chest pain. States she does take prophylactic antibiotics for urinary tract infections as she does wear an adult brief. Patient voices she has had diarrhea "excessively" for the last week. Patient's denying any vomiting, abdominal pain, chest pain, shortness of breath. Patient voices she has generalized pain in the left side of her forehead from the fall. Patient states she does take Plavix on a daily basis. Is denying any use of Coumadin. TRAVEL OUTSIDE OF THE [place] IN LAST 30 DAYS: No - Related data Allergies/Adverse Reactions: No Known Allergies Allergy (Verified 07/07/18 09:36) Past Medical History - General Information source: Patient, Relative - Social History Smoking Status: Current Some Day Smoker Family History: CAD, COPD Patient has suicidal ideation: No Patient has homicidal ideation: No - Past Medical History Cardiac Medical History: Reports: Hx Hypertension Pulmonary Medical History: Reports: Hx COPD Endocrine Medical History: Reports: Hx Diabetes Mellitus Type 2 Renal/ Medical History: Denies: Hx Peritoneal Dialysis Psychiatric Medical History: Reports: Hx Depression Past Surgical History: Reports: Hx Hysterectomy - Immunizations Immunizations up to date: Yes Hx Diphtheria, Pertussis, Tetanus Vaccination: Yes Hx Pneumococcal Vaccination: 07/09/16 Review of Systems - Review of Systems Constitutional: denies: Fever EENT: denies: Blurred vision, Double vision Cardiovascular: No symptoms reported Respiratory: No symptoms reported Gastrointestinal: See HPI Genitourinary: See HPI Female Genitourinary: No symptoms reported Musculoskeletal: denies: Back pain, Neck pain Skin: See HPI Hematologic/Lymphatic: See HPI Neurological/Psychological: See HPI Physical Exam - Vital signs Vitals: Temp Pulse BP Pulse Ox 97.8 F 61 200/63 H 98 07/25/19 03:43 07/25/19 03:43 10/03/19 03:43 07/25/19 03:43 - Notes Notes: GENERAL: Alert, interacts well. No acute distress. HEAD: Normocephalic, hematoma, non-boggy noted left forehead. EYES: Pupils equal, round, and reactive to light. Extraocular movements intact. ENT: Oral mucosa moist, tongue midline. Nares patent, no nasal septal hematoma, TM's intact, no hemotympanum noted bilaterally. NECK: Full range of motion. Supple. Trachea midline. LUNGS: Clear to auscultation bilaterally, no wheezes, rales, or rhonchi. No re spiratory distress. HEART: Regular rate and rhythm. No murmur ABDOMEN: Soft, non-tender. Non-distended. Bowel sounds present in all 4 quadrants. EXTREMITIES: Moves all 4 extremities spontaneously. normal radial and dorsalis pedis pulses bilaterally. No cyanosis. Nonpitting edema noted bilateral lower extremities. 5 out of 5 strength noted all 4 extremities. BACK: no cervical, thoracic, lumbar midline tenderness. No saddle anesthesia, normal distal neurovascular exam. NEUROLOGICAL: Alert and oriented x3. Normal speech. cranial nerves II through XII grossly intact. PSYCH: Normal affect, normal mood. SKIN: Warm, dry, normal turgor. Course - Re-evaluation Re-evalutation: Laboratory 07/25/19 07/25/19 07/25/19 04:34 04:34 04:34 WBC 9.0 RBC 4.17 Hgb 11.2 L Hct 33.1 L MCV 79 L MCH 26.9 L MCHC 33.8 RDW 15.8 H Plt Count 288 Lymph % (Auto) 12.5 L [place] % (Auto) 6.9 Eos % (Auto) 1.9 Baso % (Auto) 0.6 Absolute Neuts (auto) 7.0 Absolute Lymphs (auto) 1.1 Absolute Monos (auto) 0.6 Absolute Eos (auto) 0.2 Absolute Basos (auto) 0.1 Seg Neutrophils % 78.1 H PT 12.9 INR 0.97 APTT 26.1 Sodium 128.0 L Potassium 3.3 L Chloride 86 L Carbon Dioxide 30 Anion Gap 12 BUN 20 Creatinine 1.17 Est GFR ( Amer) 55 L Est GFR (MDRD) Non-Af 45 L Glucose 114 H Calcium 9.8 Total Bilirubin 0.5 Direct Bilirubin 0.1 Neonat Total Bilirubin Not Reportable Neonat Direct Bilirubin Not Reportable Neonat Indirect Bili Not Reportable AST 24 ALT 16 Alkaline Phosphatase 100 Troponin I Total Protein 6.7 Albumin 3.7 Urine Color Urine Appearance Urine pH Ur Specific [place] Urine Protein Urine Glucose (UA) Urine Ketones Urine Blood Urine Nitrite Urine Bilirubin Urine Urobilinogen Ur Leukocyte Esterase Urine WBC (Auto) Urine RBC (Auto) Urine Bacteria (Auto) Squamous Epi Cells Auto Urine Mucus (Auto) Urine Ascorbic Acid 07/25/19 07/25/19 04:34 04:56 WBC RBC Hgb Hct MCV MCH MCHC RDW Plt Count Lymph % (Auto) [place] % (Auto) Eos % (Auto) Baso % (Auto) Absolute Neuts (auto) Absolute Lymphs (auto) Absolute Monos (auto) Absolute Eos (auto) Absolute Basos (auto) Seg Neutrophils % PT INR APTT Sodium Potassium Chloride Carbon Dioxide Anion Gap BUN Creatinine Est GFR ( Amer) Est GFR (MDRD) Non-Af Glucose Calcium Total Bilirubin Direct Bilirubin Neonat Total Bilirubin Neonat Direct Bilirubin Neonat Indirect Bili AST ALT Alkaline Phosphatase Troponin I < 0.012 Total Protein Albumin Urine Color YELLOW Urine Appearance SLIGHTLY-CLOUDY Urine pH 7.0 Ur Specific [place] 1.008 Urine Protein NEGATIVE Urine Glucose (UA) NEGATIVE Urine Ketones NEGATIVE Urine Blood NEGATIVE Urine Nitrite NEGATIVE Urine Bilirubin NEGATIVE Urine Urobilinogen NEGATIVE Ur Leukocyte Esterase NEGATIVE Urine WBC (Auto) 4 Urine RBC (Auto) 0 Urine Bacteria (Auto) 2+ Squamous Epi Cells Auto 1 Urine Mucus (Auto) RARE Urine Ascorbic Acid NEGATIVE Head CT 07/25/19 00:00 IMPRESSION: 1. No acute intracranial abnormality by CT criteria. This exam was performed according to our departmental dose-optimization program, which includes automated exposure control, adjustment of the mA and/or kV according to patient size and/or use of iterative reconstruction technique. Cervical Spine CT 07/25/19 03:36 IMPRESSION: 1. No acute fracture or subluxation of the cervical spine. This exam was performed according to our departmental dose-optimization program, which includes automated exposure control, adjustment of the mA and/or kV according to patient size and/or use of iterative reconstruction technique. Sodium was replaced via normal saline solution, potassium was replaced via oral potassium. Patient voices she does take potassium supplements at home. Patient voices after treatments in the emergency department she overall feels a lot better. Patient was continued with multiple episodes of diarrhea. C. difficile testing pending. Discussed close follow-up with primary care provider. Patient's daughters in the room, agreeing with discharge plan. Patient stable for discharge. EKG shows sinus rhythm, rate of 61, QTc 448, no ST segment elevations or depressions noted. Read by Dr. Call. Patient's blood pressure was noted to be elevated at today's visit. She has not taken any of her home medications. Patient continues to deny chest pain, headache other than when you palpate left forehead hematoma, respiratory distress. I have asked nursing staff to get a manual blood pressure as the last blood pressure taken by the machine was 203/76. Manual blood pressure was noted to be 150/60. Again discussed with patient need for close follow-up with primary care provider and close return precautions. - Vital Signs Vital signs: Temp Pulse Resp BP Pulse Ox 97.8 F 61 12 203/76 H 98 07/25/19 03:43 07/25/19 03:43 07/25/19 07:02 07/25/19 07:02 07/25/19 07:02 - Laboratory Result Diagrams: 07/25/19 04:34 07/25/19 04:34 Laboratory results interpreted by me: 07/25/19 07/25/19 04:34 04:34 Hgb 11.2 L Hct 33.1 L MCV 79 L MCH 26.9 L RDW 15.8 H Lymph % (Auto) 12.5 L Seg Neutrophils % 78.1 H Sodium 128.0 L Potassium 3.3 L Chloride 86 L Est GFR ( Amer) 55 L Est GFR (MDRD) Non-Af 45 L Glucose 114 H Discharge - Discharge Clinical Impression: Hematoma, Hyponatremia, Hypokalemia Diarrhea Qualifiers: Diarrhea type: unspecified type Qualified Code(s): R19.7 - Diarrhea, unspecified Fall Qualifiers: Encounter type: initial encounter Qualified Code(s): W19.XXXA - Unspecified fall, initial encounter Condition: Stable Disposition: HOME, SELF-CARE Instructions: Diarrhea, Nonspecific ([facility]), Hematoma ([facility]) Additional Instructions: As we discussed you have been seen and treated in the emergency department after a fall. Your C. difficile testing is pending. The hospital call you with positive results. Please make sure he follow-up with your primary care provider in the next 24 to 48 hours. Return to the emergency room for any concerns. Prescriptions: Walker [Ultra-Light Rollator] 1 each MC DAILY #1 each Referrals: LUISA TYSON JR, MD [Primary Care Provider] - Follow up as needed
[2019-07-25 08:53] VITALS: BP 155/60
[2019-07-25 10:03] LABS: C DIFFICILE GDH NEGATIVE (NEGATIVE)
--- NOTE | 2019-07-25 21:47 | EKG REPORT ---
SEVERITY:- NORMAL ECG - SINUS RHYTHM : Confirmed by: Rashmi Damon MD 25-Jul-2019 21:46:47
== END 2019-07-25 08:53 | disposition home or self-care (01) ==
LOC: ER 03:22
DX: E87.6 Hypokalemia (principal); E87.1 Hypo-osmolality and hyponatremia; R19.7 Diarrhea, unspecified; W18.30XA Fall on same level, unspecified, initial encounter; R53.1 Weakness; F17.200 Nicotine dependence, unspecified, uncomplicated; I10 Essential (primary) hypertension; J44.9 Chronic obstructive pulmonary disease, unspecified; E11.9 Type 2 diabetes mellitus without complications; Z90.710 Acquired absence of both cervix and uterus
CPT/HCPCS: 93005; 99284; 36415; 87086; 85025; 85610; 85730; 87088; 80053; 81001; 84484; 87186; 87324; 87449; 70450; 72125; 93010; A9270; J7030; J3490; 96361

== ENCOUNTER → 2020-05-05 | Outpatient (CLI) | payer MEDICARE, MEDICAID ==
[2020-05-05 15:47] LABS: A TYPE INFLUENZA AG NEGATIVE (NEGATIVE); B INFLUENZA AG NEGATIVE (NEGATIVE)
[2020-05-05 15:55] VITALS: BP 140/78
--- NOTE | 2020-05-05 15:55 | ER RDC ASSESSMENT REPORT ---
Intake - In the Last 14 days Have you traveled outside [place]?: No Have you been in close contact with someone CONFIRMED: Yes Worked in Healthcare?: No - Symptoms Subjective Fever([place] feverish): No Chills: No Muscule Aches: No Runny Nose: No Sore Throat: No Cough (New or worsening chronic cough): Yes Shortness of breath: Yes Nausea or Vomiting: No Headache: No Abdominal Pain: No - Do you have any of the following Chronic lung disease: Asthma or emphysema or COPD: Yes Cystic Fibrosis: No Diabetes: Yes High Blood Pressure: Yes Cardiovascular Disease: Yes Chronic Kidney Disease: No Chronic Liver Disease: No Chronic blood disorder like Sickle Cell Disease: No Weak immune system due to disease or medication: No Neurologic condition that limits movement: No Developmental delay - Moderate to Severe: No Recent (within past 2 weeks) or current : No Morbid Obesity (>100 pounds over ideal weight): No Obesity Comment: Height 5 feet 4 inches weight 260 pounds Other Comment: Patient complains that tongue feels raw - Objective Temperature: 99.1 F Pulse Rate: 70 Respiratory Rate: 20 Blood Pressure: 140/78 O2 Sat by Pulse Oximetry: 95 Objective: Given above, testing performed: If Testing Performed: Test Specimen Type Sent to General - General Information source: Patient Notes: Here at [facility] for COVID testing reports family member was positive for COVID started having symptoms on the 12th had cough and shortness of breath but also complains of tongue feeling raw. Patient's PCP Dr. Caren cook. Recommended COVID testing - Related Data Allergies/Adverse Reactions: No Known Allergies Allergy (Verified 07/07/18 09:36) Past Medical History - General Information source: Patient - Social History Smoking Status: Never Smoker Family History: CAD, COPD - Past Medical History Cardiac Medical History: Reports: Hx Hypertension Pulmonary Medical History: Reports: Hx COPD Endocrine Medical History: Reports: Hx Diabetes Mellitus Type 2 Renal/ Medical History: Denies: Hx Peritoneal Dialysis Psychiatric Medical History: Reports: Hx Depression Past Surgical History: Reports: Hx Hysterectomy Physical Exam - General General appearance: Appears well, Alert In distress: None Notes: PHYSICAL EXAMINATION: GENERAL: Well-appearing and in no acute distress. HEAD: Atraumatic, normocephalic. EYES: sclera anicteric, conjunctiva are normal. ENT: nares patent. Moist mucous membranes. NECK: Normal range of motion, supple without lymphadenopathy LUNGS: CTAB and equal. No wheezes rales or rhonchi. Resp even and unlabored. HEART: Regular rate and rhythm without murmurs ABDOMEN: Soft, nontender, normal bowel sounds, no guarding. EXTREMITIES: Normal range of motion, no pitting edema. No cyanosis. NEUROLOGICAL: Normal speech. PSYCH: Normal mood, normal affect. SKIN: Warm, Dry, normal turgor, no rashes or lesions noted Diagnostic Results Laboratory Results: Patient informed of negative rapid strep and negative rapid flu results. Pending strep culture pending cover testing results. Patient provided instructions regarding COVID to include: As a person under investigation for Covid 19, the [place] department of Health and Human Services, division of public health advises you to adhere to the following guidance until your test results are reported to you. If your test result is positive, you will receive additional information from your provider and your local health department at that time. Remain at home until you are cleared by the health provider or public health authorities. Keep a log of visitors to your home, notify any visitors to your home of your isolation status. If you plan to move to a new address or leave the [facility], notify the local health department in your County. Call your doctor or seek care if you have an urgent medical need. Before seeking medical care, call ahead to get instructions from the provider before arriving at the medical office clinic or hospital. Notify them that you are being tested for the virus that causes Covid 19 so that arrangements can be made, as necessary, to prevent transmission to others in the healthcare setting. Next, notify the local health department in your county. If a medical emergency arises and you need to call 911, inform the first responders that you are being tested for the virus that causes Covid 19. Next, notify the local health department in your county. Influenza A (Rapid) NEGATIVE (NEGATIVE) 05/05/20 13:41 Influenza B (Rapid) NEGATIVE (NEGATIVE) 05/05/20 13:41 Patient Education/Counseling Counseling/Education: Patient presents with upper respiratory symptoms worrisome for possible Covid 19. Patient does not have emergency worring symptoms such as difficulty breathing, shortness of breath, chest pain, pressure, confusion or cyanosis. Patient appears suitable for discharge. Patient instructed to Follow up with PCP Dr. Fabian. To ED for persisent or worsening symptoms. Patient's vital signs are stable and patient is nontoxic in appearance. Good return precautions have been discussed with patient, patient verbalized understanding and is agreeable with discharge plan of care at this time. RDC Discharge - Discharge Clinical Impression: COVID - 19 SCREENING Condition: Stable Disposition: Home; Selfcare
== END ==
LOC: RDC 13:03
PROVIDERS: ATTEND Nurse Practitioner Family
DX: Z20.828 Contact with and (suspected) exposure to other viral communicable diseases (principal); R05 Cough; R06.02 Shortness of breath; I10 Essential (primary) hypertension; E11.9 Type 2 diabetes mellitus without complications; J44.9 Chronic obstructive pulmonary disease, unspecified
CPT/HCPCS: 87070; 87880; 87804; U0003; C9803; 87635; 99201; 99211